=== PATIENT | female | born 1975 | race Caucasian/White ===

== ENCOUNTER 2019-08-16 18:45 | Emergency (ER) | payer BC, SELFPAY ==
[2019-08-16 18:47] VITALS: BP 133/74; PULSE 92; RESP 16; TEMP 36.4; O2SAT 100; BMI 32.5
--- NOTE | 2019-08-16 19:02 | ED.VIS.GEN ---
History of Present Illness Chief Complaint: Nausea/Vomiting/Diarrhea Detail of Chief Complaint: History of Crohn's disease and renal insufficiency Informant: Patient Onset: Weeks - 1.5 weeks Context: Sudden Onset Timing: Intermittent Quality: Nausea, vomiting and diarrhea Location: GI Current Severity: Mild Maximum Severity: Moderate Worsened by: Eating Relieved by: Nothing Associated Symptoms: Dry mouth, thirsty and concern for dehydration. Muscle cramps Narrative: Patient is a 44-year-old woman with history of Crohn's disease who states this flare started 1.5 weeks ago. She was seen at [facility] last week on Wednesday, August 09. She received 2 L of normal saline. The physician wanted to admit her because of renal injury. She refused. She is on Humira. 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 She denies fever, chills night sweats. She denies headache, ocular, visual auditory symptoms. She denies cardiac respiratory symptoms. She reports decreased urine output. Denies blood or mucus in her stool. She has no other complaints other than what is been listed. Prior similar symptoms: Yes Recent Illness/Hospitalization: Yes - Past Medical History (1) History of Crohn's disease Status: Acute Past Medical History - Allergies and Home Meds Allergies/Adverse Reactions: Allergies adhesive tape Allergy (Verified 08/16/19 18:47) Rash cetirizine [From Zyrtec] Allergy (Verified 08/16/19 18:47) Other infliximab [From Remicade] Allergy (Verified 08/16/19 18:47) Anaphylaxis latex Allergy (Verified 08/16/19 18:47) Rash prochlorperazine [From Compazine] Allergy (Verified 08/16/19 18:47) Other BUGS CRAWL ALL OVER ME topiramate [From Topamax] Allergy (Verified 08/16/19 18:47) Other sumatriptan [From Imitrex] Adverse Reaction (Verified 08/16/19 18:47) Other TACHYCARDIA Primary Care Physician: Martha Haro NP-C [Primary Care Provider] - Prior records reviewed: Yes Lives: Alone Smoking Status: Never smoker Alcohol: None Drugs: None Review of Systems General: Reports: Malaise. Denies: Chills, Fever, Sweats Eyes: Denies: Visual changes - bilaterally, Blurred Vision - bilaterally, Diplopia ENT: Denies: Bilateral ear pain, Rhinorrhea, Sore throat Cardiovascular: Denies: Chest pain, Palpitations Respiratory: Denies: Dyspnea, Cough, Dyspnea on exertion Gastrointestinal: Reports: Abdominal pain, Nausea, Vomiting, Diarrhea Genitourinary: Denies: Dysuria, Hematuria, Frequency Musculoskeletal: Reports: Myalgias. Denies: Arthralgias, Neck pain, Back pain, Swelling, Extremity Pain Skin: Denies: Rash, Abrasions, Wounds Neurological: Reports: Weakness. Denies: Parasthesia, Numbness Hematologic: Denies: Easy bruising, Easy bleeding Physical Exam Vital Signs/Narrative: Vital Signs Temp Pulse Resp BP Pulse Ox 08/16/19 18:47 97.5 F L 92 16 133/74 H 100 Inital Vital Signs reviewed: Yes General: Well nourished, Well developed, No Acute Distress Head: Normocephalic, Atraumatic Eyes: Perrl, EOMI. Negative for: Pale conjunctiva, Scleral icterus ENT: No rhinorrhea, Dry mucous membranes Neck: Supple, Nontender Cardiovascular: Regular rate, Regular rhythm, No murmurs, Normal S1, Normal S2 Respiratory: No distress, CTA bilaterally, Chest nontender Abdomen: Soft, Nontender, Nondistended, Normal bowel sounds, No masses Back: Nontender, Normal Inspection Extremities: Nontender, No edema Skin: Normal color, No rash, No Trauma. Negative for: Cyanosis, Diaphoresis, Jaundice Neurological: Alert, Oriented x3, Cranial nerves II-XII grossly intact, Normal Strength, Normal Sensation Psychological: Normal affect, Normal Mood Diagnostic/Tx/Re-eval Laboratory Results 08/16/19 08/16/19 18:57 18:57 WBC 7.8 RBC 4.53 Hgb 13.6 Hct 41.2 MCV 90.9 MCH 30.0 MCHC 33.0 RDW Std Deviation 43.1 RDW Coeff of Sergio 13.1 Plt Count 451 H MPV 9.2 Immature Gran % (Auto) 0.400 Neut % (Auto) 57.5 Lymph % (Auto) 32.8 [place] % (Auto) 6.6 Eos % (Auto) 1.8 Baso % (Auto) 0.9 Absolute Neuts (auto) 4.5 Absolute Lymphs (auto) 2.57 Nucleated RBC % 0 Sodium 142 Potassium 3.4 L Chloride 110 H Carbon Dioxide 24.0 Anion Gap 8 BUN 16 Creatinine 0.92 Estim Creat Clear Calc 68.79 Est GFR (MDRD) Af Amer 86 Est GFR (MDRD) Non-Af 71 BUN/Creatinine Ratio 17.4 Glucose 105 Calcium 9.2 CBC and basic metabolic panel unremarkable. Patient was informed based on her laboratory studies there is no indication she is dehydrated. She did receive 1 L of normal saline. She states she feels better. - Medical Decision Making With history of nausea vomiting 5-6 times a day and diarrhea will assess electrolytes and renal function especially since she was seen 1 week ago and position recommended admission, which patient declined. She received a liter of normal saline wide open and IV Zofran. Reports improvement after IV Zofran and 1 L of normal saline. Patient to be discharged home. ED Disposition - Plan for ED Patient: Diagnosis: Abdominal pain, vomiting, and diarrhea, History of Crohn's disease Instructions: VOMITING AND DIARRHEA, Nonspecific (Adult) Referrals: Martha Haro, YOLANDE-C [Primary Care Provider] - As soon as possible
[2019-08-16] MEDS: 0.9% Normal Saline 1,000 ML 1000 ML IV (19:09)
[2019-08-16 19:20] LABS: Anion Gap 8 (5-15); BUN 16 mg/dL (7-18); BUN/Creat Ratio 17.4 RATIO (10-20); Calcium,Total 9.2 mg/dL (8.5-10.1); Chloride 110 mmol/L (98-107); Creatinine, Serum 0.92 mg/dL (0.55-1.02); EST Glomerular Filtration Rate 71 mL/min (>60); Est Glom Filt Rate - Afr Amer 86 mL/min (>60); Estimated Creatinine Clearance 68.79 ml/min; Glucose 105 mg/dL (74-106); Potassium 3.4 mmol/L (3.5-5.1); Sodium Level 142 mmol/L (136-145)
[2019-08-16] MEDS: Ondansetron 4 MG/2 ML Vial IV (19:20)
[2019-08-16 19:25] VITALS: BP 119/56; PULSE 87; RESP 16
[2019-08-16 19:39] LABS: Absolute Lymphocyte Count 2.57 X10^3/uL (0.83-4.51); Absolute Neutrophil Count 4.5 X10^3/uL (2.0-7.7); Basophil# 0.07 X10^3/uL; Basophil% 0.9 % (0-1); Eosinophil# 0.14 X10^3/uL; Eosinophils% 1.8 % (0-5); Hematocrit 41.2 % (37-47); Hemoglobin 13.6 g/dL (12.0-15.0); Lymphocyte # 2.57 X10^3/ul (4.0); Lymphocyte % 32.8 % (19-41); Mean Corpuscular Volume 90.9 fL (81-99); Mean Platelet Vol. 9.2 fl (6.2-12.0); Monocyte# 0.52 X10^3/uL; Monocyte% 6.6 % (0-10); NRBC Flagged by Analyzer 0 % (0-5); Neutrophil % 57.5 % (47-70); Platelet Count 451 K/mm3 (150-450); RBC Distribution Width CV 13.1 % (11.6-14.6); RBC Distribution Width SD 43.1 fl (35.1-43.9); Red Blood Count 4.53 M/mm3 (4.2-5.4); White Blood Count 7.8 K/mm3 (4.4-11.0)
[2019-08-16 21:37] VITALS: BP 119/83; PULSE 88; RESP 16; O2SAT 98
== END 2019-08-16 21:38 | disposition home or self-care (01) ==
LOC: ED 19:19
PROVIDERS: Emergency Provider Emergency Medicine; Family Provider Nurse Practitioner Family; PCP Nurse Practitioner Family
DX: R10.9 Unspecified abdominal pain (principal); R11.0 Nausea; R19.7 Diarrhea, unspecified; K50.90 Crohn's disease, unspecified, without complications; Z79.899 Other long term (current) drug therapy
CPT/HCPCS: 80048; 85025; 96361; 96374; 99283; J7030; A4216; J2405

== ENCOUNTER 2020-08-23 13:57 | Emergency (ER) | payer BC, SELFPAY ==
[2020-08-23 13:58] VITALS: BP 131/92; PULSE 90; RESP 18; TEMP 36.6; O2SAT 99; BMI 37.6
--- NOTE | 2020-08-23 14:09 | ED.DCSUM_ITS ---
History of Present Illness Informant: Patient Onset: Today Narrative: 45-year-old female presents with dog bites to her face. She was playing with her mom's dog on the floor when it bit her several times on the right side of her face. Bleeding is controlled. Last tetanus unknown. The dog shots are up-to-date. She is currently taking Augmentin for a sinus infection with her last dose scheduled tomorrow. <Arlet Farris - Last Filed: 08/23/20 16:04> <Db Oliveira - Last Filed: 08/24/20 15:03> Chief Complaint: Bite Past Medical History Past Medical History: - - Crohn's disease Smoking Status: Never smoker <Arlet Farris - Last Filed: 08/23/20 16:04> <Db Oliveira - Last Filed: 08/24/20 15:03> - Allergies and Home Meds Allergies/Adverse Reactions: Allergies adhesive tape Allergy (Verified 08/23/20 14:01) Rash cetirizine [From Zyrtec] Allergy (Verified 08/23/20 14:01) Other infliximab [From Remicade] Allergy (Verified 08/23/20 14:01) Anaphylaxis latex Allergy (Verified 08/23/20 14:01) Rash prochlorperazine [From Compazine] Allergy (Verified 08/23/20 14:01) Other BUGS CRAWL ALL OVER ME topiramate [From Topamax] Allergy (Verified 08/23/20 14:01) Other sumatriptan [From Imitrex] Adverse Reaction (Verified 08/23/20 14:01) Other TACHYCARDIA Primary Care Physician: Martha Haro SUPERINTENDENT ELECTRIC POWER, SUPERINTENDENT ELECTRIC POWER-C [Primary Care Provider] - Review of Systems General: Denies: Chills, Fever, Sweats Eyes: Denies: Visual changes - bilaterally, Diplopia ENT: Denies: Rhinorrhea, Sore throat Cardiovascular: Denies: Chest pain, Palpitations Respiratory: Denies: Dyspnea, Cough, Dyspnea on exertion Gastrointestinal: Denies: Abdominal pain, Nausea, Vomiting, Diarrhea, Melena, Hematochezia Genitourinary: Denies: Dysuria, Hematuria, Frequency Musculoskeletal: Denies: Back pain, Extremity Pain Skin: Reports: Wounds. Denies: Rash Neurological: Denies: Weakness, Parasthesia, Numbness <Arlet Farris - Last Filed: 08/23/20 16:04> Physical Exam Vital Signs/Narrative: Vital Signs Temp Pulse Resp BP Pulse Ox 08/23/20 13:58 97.8 F 90 18 131/92 H 99 General: Well nourished, Well developed, No Acute Distress Head: Normocephalic, Atraumatic Eyes: Perrl, EOMI ENT: Moist mucous membranes, No rhinorrhea Neck: Supple, Nontender Cardiovascular: Regular rate, Regular rhythm, No murmurs Respiratory: No distress, CTA bilaterally, Chest nontender Back: Nontender, Normal Inspection Extremities: Nontender, No edema Skin: Normal color, No rash, - - 4 cm vertical laceration anterior to right ear, 4 cm laceration on right upper cheek, 4 cm jagged lacerationto the right of her lips that does not involve vermilion border Neurological: Alert, Oriented x3, Cranial nerves II-XII grossly intact, Normal Strength, Normal Sensation Psychological: Normal affect, Normal Mood <Arlet Farris - Last Filed: 08/23/20 16:04> Diagnostic/Tx/Re-eval - Medical Decision Making Patient presented with lacerations on her face from a dog bite. She appears well and nontoxic. Vital signs within normal limits. 3 separate lacerations. She has a 4 cm laceration anterior to her right ear, another 4 cm on her right upper cheek, and a jagged 4 cm laceration to the right of her lip that does not involve the vermilion border. Wounds were anesthetized with 4 cc of 1% lidocaine each for a total of 12 cc. They were thoroughly irrigated with the entire 250 cc of sterile saline. The laceration near her ear was closed with 6 simple interrupted sutures, the right upper cheek with 7 simple interrupted sutures, and right lip laceration with 6 simple interrupted sutures all using 5-0 Ethilon. Discussed general wound care and that sutures need removed in 4 to 5 days. Tetanus was updated and she was placed on Augmentin. Discussed to monitor for signs and symptoms of infection that would warrant return to the ED. She was agreeable and discharged home in stable condition. <Arlet Farris - Last Filed: 08/23/20 16:04> - Medical Decision Making Patient presents with dog bite to the face. She does have 3 separate lacerations that unfortunately do need primary closure. This was done and the patient tolerated without issue. She will be placed on Augmentin. She was counseled on wound care. I do want her to follow-up within 48 hours or return to the emergency department if her symptoms worsen. She was comfortable with this plan of care. <Db Oliveira - Last Filed: 08/24/20 15:03> ED Disposition <Arlet Farris - Last Filed: 08/23/20 16:04> <Db Oliveira - Last Filed: 08/24/20 15:03> - Plan for ED Patient: Disposition: Home or Assisted Living Diagnosis: Dog bite of face Instructions: ED Animal Bite (General) Prescriptions: Amox/Clavulanate Tablet [Augmentin Tablet] 875 mg PO Q12H #20 tab Transmission Status: Received by [id number] Referrals: Martha Haro NP, SUPERINTENDENT ELECTRIC POWER-C [Primary Care Provider] -
[2020-08-23] MEDS: HYDROcodone Bitartrate/Apap 5/325 Tablet PO (14:17)
[2020-08-23] MEDS: Diphth,Pertuss(Acell),Tet Vac 0.5 ML Vial IM (14:28)
[2020-08-23] MEDS: Lidocaine 1% (30 ml sdv) 30 ML Vial INFILT (14:36)
[2020-08-23 15:46] VITALS: BP 113/71; O2SAT 98
== END 2020-08-23 15:49 | disposition home or self-care (01) ==
LOC: ED 14:20
PROVIDERS: Emergency Provider Physician Assistant; PCP Nurse Practitioner Family
DX: S00.471A Other superficial bite of right ear, initial encounter (principal); S00.87XA Other superficial bite of other part of head, initial encounter; S00.571A Other superficial bite of lip, initial encounter; K50.90 Crohn's disease, unspecified, without complications; W54.0XXA Bitten by dog, initial encounter; Y93.9 Activity, unspecified; Y92.9 Unspecified place or not applicable
CPT/HCPCS: 12015; 90715; 99285

== ENCOUNTER 2020-08-25 08:46 | Inpatient (IN) | payer BC, SELFPAY ==
[2020-08-25] VITALS (8 sets, daily range): BP systolic 104–133; BP diastolic 39–83; PULSE 75–95; RESP 16–92; TEMP 36.1–37.1; O2SAT 95–100; BMI 36.5; BMI 36.8
--- NOTE | 2020-08-25 09:02 | CT_ITS ---
STUDY: CT FACIAL BONES WITH CONTRAST REASON FOR EXAM: Female, 45 years old. DOG BITE TO FACE, INCREASED EDEMA AND PAIN RADIATION DOSAGE (If Supplied By Facility): CTDIvol = ( 29.38 ) mGy, DLP = ( 642.95 ) mGycm TECHNIQUE: The patient was scanned in a multi detector CT scanner. Transaxial imaging was performed following the intravenous administration of IV 100mL Isovue-300. Sagittal and coronal images were reconstructed. Individualized dose optimization techniques were used for this CT. COMPARISON: None. FINDINGS: Skin thickening and soft tissue edema of the right side of the face consistent with cellulitis. No loculated fluid collection to suggest abscess. Normal orbital starr and orbital contents. Normal nasal bones and anterior nasal spine. Normal facial bones. There is no demonstrated fracture. Mucosal thickening of the sinuses consistent with chronic pansinusitis. Air-fluid levels within the maxillary and sphenoid sinuses consistent with acute sinusitis. CT/Sinus/Facial Bone WITH Contras IMPRESSION: Cellulitis in the right side of the face but no abscess. Electronically Signed: Ian Martinez MD at 10:31 EST Tel , Service support ,
--- NOTE | 2020-08-25 09:05 | NURSING ---
pt seen on wednesday for dog bite. rt side of face is swollen and red. 3 separate sites of sutures.
[2020-08-25] MEDS: Ondansetron 4 MG/2 ML Vial IV ×2 (09:21→11:31)
[2020-08-25] MEDS: Morphine 4 MG/ML Syringe IV ×2 (09:21→11:31)
[2020-08-25] MEDS: 0.9% Normal Saline 1,000 ML 150 ML IV (09:21)
[2020-08-25 09:43] LABS: Absolute Lymphocyte Count 1.59 X10^3/uL (0.83-4.51); Absolute Neutrophil Count 10.7 X10^3/uL (2.0-7.7); Basophil# 0.03 X10^3/uL; Basophil% 0.2 % (0-1); Eosinophil# 0.09 X10^3/uL; Eosinophils% 0.7 % (0-5); Hematocrit 33.9 % (37-47); Hemoglobin 11.1 g/dL (12.0-15.0); Lymphocyte # 1.59 X10^3/ul (4.0); Lymphocyte % 11.7 % (19-41); Mean Corp Hgb Conc 32.7 g/dL (32-36); Mean Corpuscular Volume 91.6 fL (81-99); Mean Platelet Vol. 8.9 fl (6.2-12.0); Monocyte# 1.01 X10^3/uL; Monocyte% 7.5 % (0-10); NRBC Flagged by Analyzer 0 % (0-5); Neutrophil # 10.74 X10^3/uL (2.7-7.7); Neutrophil % 79.3 % (47-70); Platelet Count 399 K/mm3 (150-450); RBC Distribution Width CV 12.9 % (11.6-14.6); RBC Distribution Width SD 42.3 fl (35.1-43.9); White Blood Count 13.5 K/mm3 (4.4-11.0)
[2020-08-25 09:46] LABS: Anion Gap 7 (5-15); BUN 9 mg/dL (7-18); BUN/Creat Ratio 11.2 RATIO (10-20); Calcium,Total 8.9 mg/dL (8.5-10.1); Chloride 105 mmol/L (98-107); Creatinine, Serum 0.81 mg/dL (0.55-1.02); EST Glomerular Filtration Rate 82 mL/min (>60); Est Glom Filt Rate - Afr Amer 99 mL/min (>60); Estimated Creatinine Clearance 77.33 ml/min; Glucose 128 mg/dL (74-106); Potassium 3.4 mmol/L (3.5-5.1); Sodium Level 139 mmol/L (136-145)
[2020-08-25 09:59] LABS: Lactic Acid 0.7 mmol/L (0.4-1.9)
[2020-08-25 10:02] LABS: Internal QC Validated? YES +Cl - CLEAR BKGD; Pregnancy, Serum, hCG Quali. NEGATIVE Negative
--- NOTE | 2020-08-25 11:02 | ED.DCSUM_ITS ---
History of Present Illness Chief Complaint: Fever Detail of Chief Complaint: Facial swelling Informant: Patient Onset: Days Context: Gradual Onset Current Severity: Moderate Maximum Severity: Moderate Narrative: Patient was seen in the ER on the after suffering a dog bite to the right side of her face. She had 3 separate lacerations, each measuring 4 cm in length . These were repaired and patient was placed on Augmentin. Patient states she had increased pain and swelling over the past 2 days. She did have a fever up to 101.6. She does report having some congestion and chills for the last week and a half. She was tested for Covid which was negative and she had been on Augmentin for sinus infection. - Past Medical History (1) History of Crohn's disease Status: Chronic Past Medical History - Allergies and Home Meds Allergies/Adverse Reactions: Allergies adhesive tape Allergy (Verified 08/25/20 08:48) Rash cetirizine [From Zyrtec] Allergy (Verified 08/25/20 08:48) Other infliximab [From Remicade] Allergy (Verified 08/25/20 08:48) Anaphylaxis latex Allergy (Verified 08/25/20 08:48) Rash prochlorperazine [From Compazine] Allergy (Verified 08/25/20 08:48) Other BUGS CRAWL ALL OVER ME topiramate [From Topamax] Allergy (Verified 08/25/20 08:48) Other sumatriptan [From Imitrex] Adverse Reaction (Verified 08/25/20 08:48) Other TACHYCARDIA Primary Care Physician: Martha Haro HVAC MAINTENANCE TECHNICIAN, HVAC MAINTENANCE TECHNICIAN-C [Primary Care Provider] - Prior records reviewed: Yes Smoking Status: Never smoker Review of Systems General: Reports: Fever Eyes: Denies: Visual changes - bilaterally ENT: Reports: - - Right facial pain and swelling Cardiovascular: Denies: Chest pain Respiratory: Denies: Dyspnea, Cough Gastrointestinal: Reports: Nausea. Denies: Abdominal pain, Vomiting Musculoskeletal: Denies: Extremity Pain Skin: Reports: Wounds Neurological: Denies: Headache Hematologic: Denies: Easy bruising, Easy bleeding Allergy: Denies: Uticaria Physical Exam Vital Signs/Narrative: Vital Signs Temp Pulse Resp BP Pulse Ox 08/25/20 10:00 98.1 F 77 92 H 116/73 08/25/20 09:23 98 F 79 16 118/78 08/25/20 08:49 97.8 F 93 17 108/39 L 95 Inital Vital Signs reviewed: Yes General: Well nourished, Well developed Head: Normocephalic Eyes: Perrl, EOMI ENT: - - 3 sutured lacerations noted to the right side of face. Sutures are clean. She does have moderate right-sided facial edema. There is mild erythema extending onto the anterior neck. No drainage from the wounds. Cardiovascular: Regular rate, Regular rhythm Respiratory: No distress, CTA bilaterally Abdomen: Soft, Nontender Extremities: Nontender Skin: - - As above Neurological: Alert, Oriented x3 Psychological: Normal affect Diagnostic/Tx/Re-eval Impressions Facial/Sinus 08/25/20 09:02 IMPRESSION: Cellulitis in the right side of the face but no abscess. Electronically Signed: Ian Martinez MD at 10:31 EST Tel , Service support , 08/25/20 09:02 CT Facial [Sinus/Facial Bone WITH Contras] [CT] Stat Laboratory Results 08/25/20 08/25/20 08/25/20 09:19 09:19 09:19 WBC 13.5 H RBC 3.70 L Hgb 11.1 L Hct 33.9 L MCV 91.6 MCH 30.0 MCHC 32.7 RDW Std Deviation 42.3 RDW Coeff of Sergio 12.9 Plt Count 399 MPV 8.9 Immature Gran % (Auto) 0.600 Neut % (Auto) 79.3 H Lymph % (Auto) 11.7 L [place] % (Auto) 7.5 Eos % (Auto) 0.7 Baso % (Auto) 0.2 Absolute Neuts (auto) 10.7 H Absolute Lymphs (auto) 1.59 Nucleated RBC % 0 Sodium 139 Potassium 3.4 L Chloride 105 Carbon Dioxide 27.0 Anion Gap 7 BUN 9 Creatinine 0.81 Estim Creat Clear Calc 77.33 Est GFR (MDRD) Af Amer 99 Est GFR (MDRD) Non-Af 82 BUN/Creatinine Ratio 11.2 Glucose 128 H Lactic Acid 0.7 Calcium 8.9 Serum , Qual 08/25/20 09:19 WBC RBC Hgb Hct MCV MCH MCHC RDW Std Deviation RDW Coeff of Sergio Plt Count MPV Immature Gran % (Auto) Neut % (Auto) Lymph % (Auto) [place] % (Auto) Eos % (Auto) Baso % (Auto) Absolute Neuts (auto) Absolute Lymphs (auto) Nucleated RBC % Sodium Potassium Chloride Carbon Dioxide Anion Gap BUN Creatinine Estim Creat Clear Calc Est GFR (MDRD) Af Amer Est GFR (MDRD) Non-Af BUN/Creatinine Ratio Glucose Lactic Acid Calcium Serum , Qual NEGATIVE - Medical Decision Making Patient was given a dose of morphine and Zofran for pain control. Blood cultures were drawn. Blood work does show elevation in white count. CT scan reveals cellulitis but no evidence of abscess at this time. Patient is immunocompromised on prednisone and Stelara. Patient will be given IV vancomycin and admitted for further treatment. ED Disposition - Plan for ED Patient: Disposition: Acute Care [facility] Diagnosis: Facial cellulitis Referrals: Martha Haro HVAC MAINTENANCE TECHNICIAN, HVAC MAINTENANCE TECHNICIAN-C [Primary Care Provider] -
[2020-08-25 11:26] LABS: Mucous, Urine 0 SEEN /hpf (<or=2+); Red Blood Cells-Urine 0 SEEN /hpf (0-5)
[2020-08-25 11:42] LABS: Color, Urine Yellow (Yellow); Glucose, Dipstick Normal (Normal); Ketone-Dipstick 5 mg/dl (Negative); Leukocyte Esterase-Dipstick Negative /ul (Negative); Nitrite-Dipstick Negative (Negative); Occult Blood-Urine 10 /ul (Negative); Protein-Dipstick 30 mg/dl (Negative); Urine Bilirubin Dipstick Negative (Negative); Urine Clarity Clear (Clear); Urine Urobilinogen Normal (Normal)
--- NOTE | 2020-08-25 12:03 | HP.PCM_ITS ---
Problem List (1) Fibromyalgia Status: Chronic (2) History of Crohn's disease Status: Chronic (3) Facial cellulitis Status: Acute History of Present Illness Date of Admission: 08/25/20 Chief Complaint: Worsening right facial swelling, pain and redness, fever. The patient is a 45 year old F with past medical history as mentioned above presented to the emergency room because of worsening right facial swelling, pain and redness as well as fever. Patient had dog bite 2 days ago, had multiple right facial lacerations, came to the emergency department 2 days ago, lacerat ion was sutured and patient was discharged home on Augmentin. Patient was Augmentin for 8 days before this for sinus infection and she continued taking Augmentin. Since yesterday, she noticed that her right face is getting more red, started having more pain on the right face, dull aching pain, 5 out of 10 in severity, associated with progressively increasing redness and swelling, aggravated by opening her mouth and associated with fever as well. She mentioned she that she had a fever of up to 101.6 Fahrenheit at home. In the emergency department, her vital signs were stable, she was afebrile. Routine blood work was remarkable for leukocytosis, potassium of 3.4, otherwise normal. Urinalysis pending. Lactic acid was normal. Serum was negative. CT scan of the facial bones with contrast revealed right facial cellulitis with no abscess or fluid collection. Patient is being admitted for right facial cellulitis due to dog bite with failure of outpatient treatment. Past Medical History Past Medical History (Chronic Problems): Chronic Problems Fibromyalgia (Chronic) History of Crohn's disease (Chronic) Allergies adhesive tape Allergy (Verified 08/25/20 08:48) Rash cetirizine [From Zyrtec] Allergy (Verified 08/25/20 08:48) Other infliximab [From Remicade] Allergy (Verified 08/25/20 08:48) Anaphylaxis latex Allergy (Verified 08/25/20 08:48) Rash prochlorperazine [From Compazine] Allergy (Verified 08/25/20 08:48) Other BUGS CRAWL ALL OVER ME topiramate [From Topamax] Allergy (Verified 08/25/20 08:48) Other sumatriptan [From Imitrex] Adverse Reaction (Verified 08/25/20 08:48) Other TACHYCARDIA Home Medications: Ambulatory Orders Medication Instructions Recorded Anti-Diarrheal 4 tab PO DAILY 02/05/17 Baclofen [Lioresal] 10 mg PO TID 02/05/17 Gabapentin [Neurontin] 300 mg PO TID 02/05/17 Metoclopramide [Reglan] 10 mg PO TID PRN 02/05/17 Omeprazole [Prilosec] 40 mg PO DAILY 02/05/17 Oxycodone HCl/Acetaminophen 1 tab PO TID 02/05/17 [Percocet 10-325 mg Tablet] Amox/Clavulanate Tablet [Augmentin 875 mg PO Q12H #20 tab 08/23/20 Tablet] Fluticasone 0.05% [Flonase Nasal 2 spray NASAL DAILY 08/23/20 [place]] Prednisone 5 mg PO TID 08/23/20 Ustekinumab [Stelara] 90 mg SQ Q8 08/23/20 Surgical History: appendectomy, cholecystectomy, colectomy Psychiatric History: No pertinent psych hx Lives: Spouse/ Significant Other Smoking Status: Never smoker Alcohol: None Drugs: None - *Family History Maternal History Items: No pertinent history Paternal History Items: No pertinent history Review of Systems Constitutional: Reports: Fever. Denies: Anorexia, Chills, Weakness Eyes: Denies: Blurred vision, Double vision, Drainage, Redness HEENT: Denies: Difficulty Hearing, Ear Pain, Eye Pain, Nasal Congestion, Sore Throat Cardiovascular: Denies: Chest Pain, Chest Pressure, Edema, Heaviness, Light Headedness, Palpitations, Syncope Respiratory: Denies: Cough, Pleuritic Pain, Shortness of Breath, Sputum production, Wheezing Gastrointestinal: Denies: Abdominal Pain, Constipation, Diarrhea, Nausea, Vomiting Genitourinary: Denies: Dysuria, Frequency, Hematuria Musculoskeletal: Denies: Arm Pain, Back Pain, Foot Pain Skin: Reports: Wounds. Denies: Dryness Neurological: Denies: Balance problems, Double vision, Change in Speech, Slurred speech, Confusion Psychiatric: Denies: Anxiety, Depression Endocrine: Denies: Change in Body Habitus, Polydipsia, Polyuria VTE Information - Inpt Only VTE Present on Admission: No VTE Mechan Device Prophylaxis: None VTE Pharm Prophylaxis ordered?: No Patient Problems: Active and Suspected Problems Facial cellulitis (Acute) - Physical Exam Vitals/I&O's: Vital Signs Temp Pulse Resp BP Pulse Ox 97 F L 79 18 119/81 H 98 08/25/20 11:24 08/25/20 11:24 08/25/20 11:24 08/25/20 11:24 08/25/20 11:24 Oxygen Delivery Method Room Air Weight: 212 lb 11.937 oz Body Mass Index (BMI) 36.5 General: Alert, Oriented x3, Cooperative, No apparent distress HEENT: Atraumatic, PERRLA, EOMI, Normocephalic Oral: Moist Mucosa, No Gingival or Mucosal Lesions/ Ulcerations Neck: Supple, No JVD, Negative Carotid Bruits, Trachea Midline, Thyroid Normal Size and Texture Lungs: Clear to auscultation, Normal air movement, No rhonchi, No wheeze, No rales Cardiovascular: Regular rate, Regular Rhythm, Normal S1, Normal S2, PMI Normal Abdomen: Bowel Sounds Present, Soft, Non Tender, Non-Distended, No Hepato- splenomegaly, Obese Extremities: No clubbing, No cyanosis, No edema Skin: No rashes, - - Face: Extensive erythema and swelling of the right face extending into the around the right thigh and down to the anterior neck. Right facial lacerations x3, sutured. No drainage or pus. Lymphatic: No Cervical, Supraclavicular, or Inguinal Adenopathy Neurological: Cranial nerves II-XII grossly intact, Motor Exam 5/5 strength throughout Psych/Mental Status: Normal Affect, Appropriate, Alert and oriented to time, place, person, mood and affect Laboratory Results 08/25/20 09:19: WBC 13.5 H, RBC 3.70 L, Hgb 11.1 L, Hct 33.9 L, MCV 91.6, MCH 30.0, MCHC 32.7, RDW Std Deviation 42.3, RDW Coeff of Sergio 12.9, Plt Count 399, MPV 8.9, Immature Gran % (Auto) 0.600, Neut % (Auto) 79.3 H, Lymph % (Auto) 11.7 L, [place] % (Auto) 7.5, Eos % (Auto) 0.7, Baso % (Auto) 0.2, Absolute Neuts (auto) 10.7 H, Absolute Lymphs (auto) 1.59, Nucleated RBC % 0 08/25/20 09:19: Sodium 139, Potassium 3.4 L, Chloride 105, Carbon Dioxide 27.0, Anion Gap 7, BUN 9, Creatinine 0.81, Estim Creat Clear Calc 77.33, Est GFR (MDRD) Af Amer 99, Est GFR (MDRD) Non-Af 82, BUN/Creatinine Ratio 11.2, Glucose 128 H, Calcium 8.9 08/25/20 09:19: Lactic Acid 0.7 08/25/20 09:19: Serum , Qual NEGATIVE 08/25/20 11:20: Urine Color Pending, Urine Clarity Pending, Urine pH Pending, Ur Specific [place] Pending, Urine Protein Pending, Urine Glucose (UA) Pending, Urine Ketones Pending, Urine Occult Blood Pending, Urine Nitrite Pending, Urine Bilirubin Pending, Urine Urobilinogen Pending, Ur Leukocyte Esterase Pending, Urine RBC Pending, Urine WBC Pending, Ur Squamous Epith Cells Pending, Urine Bacteria Pending, Urine Mucus Pending Clinical Impression(s) from Imaging Studies Facial/Sinus 08/25/20 09:02 IMPRESSION: Cellulitis in the right side of the face but no abscess. Electronically Signed: Ian Martinez MD at 10:31 EST Tel , Service support , Current Medications Sodium Chloride () 1,000 mls @ 150 mls/hr IV .[id number] [facility] Last Admin: 08/25/20 09:21 Dose: 150 mls/hr Documented by: Vancomycin HCl 1,500 mg/ (Sodium Chloride) 530 mls @ 250 mls/hr IV X1 ONE Stop: 08/25/20 13:37 Last Admin: 08/25/20 11:22 Dose: 250 mls/hr Documented by: Assessment/Plan All Active Problems Facial cellulitis (Acute) This is a 45 years old female patient presented to the emergency room because of worsening right facial pain, swelling and redness after she had dog bite 2 days ago, was on Augmentin without improvement and she is being admitted for treatment with IV antibiotics. #1 acute right facial cellulitis/multiple lacerations status post suturing: Due to dog bite. Patient was on Augmentin for 8 days for sinus infection and she was continued on Augmentin for last couple of days, no improvement. She does have leukocytosis. Lactic acid is normal. No evidence of sepsis or severe sepsis. CT scan facial bones reviewed, no abscess or fluid collection. Plan[facility], IV fluids, blood culture, MRSA nasal screening, start IV Rocephin twice daily and IV Flagyl, Tylenol as needed, Zofran as needed, IV morphine as needed, OxyIR as needed, repeat CBC and BMP tomorrow morning. #2 Crohn's disease: With history of chronic diarrhea and chronic abdominal pain, nothing unusual. Currently, she denies bloody diarrhea. She had colectomy and multiple surgeries for Crohn's disease, status post J-pouch. She has been on Stelara injections every 8 weeks. She is not on any long-term steroids. Plan to monitor. #3 fibromyalgia/arthritis: Continue baclofen, gabapentin, OxyIR as needed. #4 DVT prophylaxis: Low risk patient, no prophylaxis indicated. This note was generated with [employer] dictation software. It may contain incorrect words, spelling, and punctuation that were not noted in checking the note b efore signing. Inpatient E&M: 09235 Init Hosp L2
[2020-08-25 12:07] LABS: Bacteria RARE /hpf (None Seen); Squamous Epithelial Cells - UA 0-5 SEEN /hpf (5-10); White Blood Cells 0-5 SEEN /hpf (0-5)
[2020-08-25] MEDS: oxyCODONE 5 MG Tablet PO ×3 (13:23→21:48)
[2020-08-25] MEDS: Gabapentin 300 MG Capsule PO ×2 (13:24→21:05)
[2020-08-25] MEDS: Baclofen 10 MG Tablet PO ×2 (13:24→21:05)
[2020-08-25] MEDS: metroNIDAZOLE 500 MG/100 ML BAG 100 MG IV ×2 (14:00→21:48)
[2020-08-25] MEDS: 0.9% Normal Saline 1,000 ML 75 ML IV (14:01)
[2020-08-25 16:33] LABS: M R Staph aureus DNA By PCR Negative (Negative); Probe Check PASS; Specimen Processing Control PASS
[2020-08-25] MEDS: Morphine 2 MG/ML Syringe IV (19:56)
[2020-08-25] MEDS: Zolpidem Tartrate 5 MG Tablet PO (21:04)
[2020-08-25] MEDS: Ceftriaxone 1 GM/50 ML BAG IV (21:05)
[2020-08-26] MEDS: Acetaminophen 325 MG Tablet 650 MG PO ×3 (02:13→19:54)
[2020-08-26 02:15] VITALS: BP 111/72; PULSE 107; RESP 18; TEMP 37.5; O2SAT 94
[2020-08-26] MEDS: Morphine 2 MG/ML Syringe IV ×3 (02:17→18:59)
[2020-08-26 05:09] LABS: Absolute Neutrophil Count 6.7 X10^3/uL (2.0-7.7); Basophil# 0.05 X10^3/uL; Basophil% 0.6 % (0-1); Eosinophil# 0.23 X10^3/uL; Eosinophils% 2.6 % (0-5); Hematocrit 28.2 % (37-47); Hemoglobin 9.3 g/dL (12.0-15.0); Lymphocyte % 15.6 % (19-41); Mean Corpuscular Hgb 30.2 pg (27.0-32.0); Mean Corpuscular Volume 91.6 fL (81-99); Mean Platelet Vol. 8.7 fl (6.2-12.0); Monocyte# 0.59 X10^3/uL; Monocyte% 6.6 % (0-10); NRBC Flagged by Analyzer 0 % (0-5); Neutrophil # 6.65 X10^3/uL (2.7-7.7); Neutrophil % 74.2 % (47-70); Platelet Count 321 K/mm3 (150-450); RBC Distribution Width CV 12.8 % (11.6-14.6); RBC Distribution Width SD 42.7 fl (35.1-43.9); Red Blood Count 3.08 M/mm3 (4.2-5.4)
[2020-08-26 05:26] LABS: Anion Gap 7 (5-15); BUN 8 mg/dL (7-18); BUN/Creat Ratio 11.2 RATIO (10-20); Calcium,Total 8.4 mg/dL (8.5-10.1); Chloride 106 mmol/L (98-107); Creatinine, Serum 0.72 mg/dL (0.55-1.02); EST Glomerular Filtration Rate 94 mL/min (>60); Est Glom Filt Rate - Afr Amer 114 mL/min (>60); Glucose 102 mg/dL (74-106); Potassium 3.5 mmol/L (3.5-5.1); Sodium Level 138 mmol/L (136-145)
[2020-08-26] MEDS: metroNIDAZOLE 500 MG/100 ML BAG 100 MG IV ×2 (05:49→14:55)
[2020-08-26] MEDS: Gabapentin 300 MG Capsule PO ×3 (05:50→21:32)
[2020-08-26] MEDS: Baclofen 10 MG Tablet PO ×3 (05:50→21:32)
[2020-08-26 07:22] VITALS: O2SAT 96
--- NOTE | 2020-08-26 08:05 | PCM.PROGNOTE ---
Patient Problems: Active and Suspected Problems Facial cellulitis (Acute) Subjective: Chief complaint: Follow-up after admission for acute right facial s/ multiple lacerations due to dog bite with failure of outpatient treatment. Patient seen and examined. No acute events overnight. Facial swelling and erythema almost the same, she started having drainage from the lacerations, pus. She had no spikes of fever last night, maximum temperature was 99.5 Fahrenheit. Other vital signs are stable. - Physical Exam Vitals/I&O's: Vital Signs Temp Pulse Resp BP Pulse Ox 99.5 F H 107 H 18 111/72 94 08/26/20 02:15 08/26/20 02:15 08/26/20 02:15 08/26/20 02:15 08/26/20 02:15 Oxygen Delivery Method Room Air Weight: 214 lb 4 oz Body Mass Index (BMI) 36.8 Intake and Output for Last 24 Hours 08/24/20 08/25/20 08/26/20 23:59 23:59 23:59 Intake Total 3576.5 / 3576.5 529.5 / 529.5 Balance 3576.5 / 3576.5 529.5 / 529.5 General: Alert, Oriented x3, Cooperative, No apparent distress HEENT: Atraumatic, PERRLA, EOMI, Normocephalic Oral: Moist Mucosa, No Gingival or Mucosal Lesions/ Ulcerations Neck: Supple, No JVD, Negative Carotid Bruits, Trachea Midline, Thyroid Normal Size and Texture Lungs: Clear to auscultation, Normal air movement, No rhonchi, No wheeze, No rales Cardiovascular: Regular rate, Regular Rhythm, Normal S1, Normal S2, No murmurs, PMI Normal Abdomen: Bowel Sounds Present, Soft, Non Tender, Non-Distended, No Hepato-splenomegaly Extremities: No clubbing, No cyanosis, No edema Skin: No rashes, Ulcer/ Wound, - - Right face: Significant erythema and edema, multiple lacerations, drainage. Lymphatic: No Cervical, Supraclavicular, or Inguinal Adenopathy Neurological: Cranial nerves II-XII grossly intact, Neuro grossly intact Psych/Mental Status: Normal Affect, Appropriate, Alert and oriented to time, place, person, mood and affect Laboratory Results 08/25/20 09:19: WBC 13.5 H, RBC 3.70 L, Hgb 11.1 L, Hct 33.9 L, MCV 91.6, MCH 30.0, MCHC 32.7, RDW Std Deviation 42.3, RDW Coeff of Sergio 12.9, Plt Count 399, MPV 8.9, Immature Gran % (Auto) 0.600, Neut % (Auto) 79.3 H, Lymph % (Auto) 11.7 L, [place] % (Auto) 7.5, Eos % (Auto) 0.7, Baso % (Auto) 0.2, Absolute Neuts (auto) 10.7 H, Absolute Lymphs (auto) 1.59, Nucleated RBC % 0 08/25/20 09:19: Sodium 139, Potassium 3.4 L, Chloride 105, Carbon Dioxide 27.0, Anion Gap 7, BUN 9, Creatinine 0.81, Estim Creat Clear Calc 77.33, Est GFR (MDRD) Af Amer 99, Est GFR (MDRD) Non-Af 82, BUN/Creatinine Ratio 11.2, Glucose 128 H, Calcium 8.9 08/25/20 09:19: Lactic Acid 0.7 08/25/20 09:19: Serum , Qual NEGATIVE 08/25/20 11:20: Urine Color Yellow, Urine Clarity Clear, Urine pH 5.0, Ur Specific [place] 1.010, Urine Protein 30 H, Urine Glucose (UA) Normal, Urine Ketones 5 H, Urine Occult Blood 10 H, Urine Nitrite Negative, Urine Bilirubin Negative, Urine Urobilinogen Normal, Ur Leukocyte Esterase Negative, Urine RBC 0 SEEN, Urine WBC 0-5 SEEN, Ur Squamous Epith Cells 0-5 SEEN, Urine Bacteria RARE, Urine Mucus 0 SEEN 08/25/20 14:50: MRSA (PCR) Negative 08/26/20 05:02: WBC 9.0, RBC 3.08 L, Hgb 9.3 L, Hct 28.2 L, MCV 91.6, MCH 30.2, MCHC 33.0, RDW Std Deviation 42.7, RDW Coeff of Sergio 12.8, Plt Count 321, MPV 8.7, Immature Gran % (Auto) 0.400, Neut % (Auto) 74.2 H, Lymph % (Auto) 15.6 L, [place] % (Auto) 6.6, Eos % (Auto) 2.6, Baso % (Auto) 0.6, Absolute Neuts (auto) 6.7, Absolute Lymphs (auto) 1.40, Nucleated RBC % 0 08/26/20 05:02: Sodium 138, Potassium 3.5, Chloride 106, Carbon Dioxide 25.0, Anion Gap 7, BUN 8, Creatinine 0.72, Estim Creat Clear Calc 87.00, Est GFR (MDRD) Af Amer 114, Est GFR (MDRD) Non-Af 94, BUN/Creatinine Ratio 11.2, Glucose 102, Calcium 8.4 L Current Medications Acetaminophen (Acetaminophen 325 Mg Tablet) 650 mg PO Q6H PRN PRN PRN Reason: Pain Score 1-10/Temp > 100.7 F Last Admin: 08/26/20 02:13 Dose: 650 mg Documented by: Baclofen (Baclofen 10 Mg Tablet) 10 mg PO TID [facility] Last Admin: 08/26/20 05:50 Dose: 10 mg Documented by: Fluticasone Propionate (Fluticasone 0.05% 1 [place] Nasal.Sry) 2 spray NASAL DAILY [facility] Gabapentin (Gabapentin 300 Mg Capsule) 300 mg PO TID [facility] Last Admin: 08/26/20 05:50 Dose: 300 mg Documented by: Ceftriaxone Sodium (Rocephin) 1 gm in 50 mls @ 100 mls/hr IV Q12 [facility] Last Infusion: 08/25/20 21:35 Dose: Infused Documented by: Metronidazole (Flagyl) 500 mg in 100 mls @ 100 mls/hr IV Q8 [facility] Last Infusion: 08/26/20 06:49 Dose: Infused Documented by: Sodium Chloride () 250 mls @ 15 mls/hr IV .[id number] PRN PRN Reason: Saline Flush Last Infusion: 08/26/20 06:49 Dose: 15 mls/hr Documented by: Sodium Chloride () 250 mls @ 15 mls/hr IV .[id number] PRN PRN Reason: Additional IVPB Infusion Metoclopramide HCl (Metoclopramide 10 Mg Tablet) 10 mg PO TID PRN PRN PRN Reason: NAUSEA Morphine Sulfate (Morphine 2 Mg/Ml Syringe) 2 mg IV Q4H PRN PRN PRN Reason: Pain Score 6-10 Last Admin: 08/26/20 02:17 Dose: 2 mg Documented by: Ondansetron HCl (Ondansetron 4 Mg/2 Ml Vial) 4 mg IV Q8H PRN PRN PRN Reason: NAUSEA/VOMITING Oxycodone HCl (Oxycodone 5 Mg Tablet) 5 mg PO Q4H PRN PRN PRN Reason: Pain Score 4-5 Last Admin: 08/25/20 21:48 Dose: 5 mg Documented by: Pantoprazole Sodium (Pantoprazole Sodium 40 Mg Tablet) 40 mg PO DAILY [facility] Senna/Docusate Sodium (Senna/Docusate Sodium 1 Tablet) 2 tablet PO BID PRN PRN PRN Reason: Constipation Sodium Chloride (0.9% Saline Lock 10 Ml Syringe) 10 - 40 ml IV UD PRN PRN Reason: SALINE FLUSH Zolpidem Tartrate (Zolpidem Tartrate 5 Mg Tablet) 5 mg PO QHS PRN PRN PRN Reason: INSOMNIA Last Admin: 08/25/20 21:04 Dose: 5 mg Documented by: Medical Necessity - Tobacco Use Smoking Status: Never smoker Assessment/Plan All Active Problems Facial cellulitis (Acute) This is a 45 years old female patient presented to the emergency room because of worsening right facial pain, swelling and redness after she had dog bite 2 days ago, was on Augmentin without improvement and she is being admitted for treatment with IV antibiotics. #1 acute right facial cellulitis/multiple lacerations status post suturing: Due to dog bite. She is on IV Rocephin and Flagyl. She has been afebrile, leukocytosis resolved. She started having drainage from the facial lacerations. Cultures was done. Blood cultures pending. MRSA nasal screen was negative. CT scan facial bones reviewed, no abscess or fluid collection. Plan: Continue same treatment, plastic surgery consult. #2 Crohn's disease: With history of chronic diarrhea and chronic abdominal pain, nothing unusual. Stable, no acute complaints. She had colectomy and multiple surgeries for Crohn's disease, status post J-pouch. She has been on Stelara injections every 8 weeks. She is not on any long-term steroids. Plan to monitor. #3 fibromyalgia/arthritis: Continue baclofen, gabapentin, OxyIR as needed. #4 DVT prophylaxis: Low risk patient, no prophylaxis indicated. This note was generated with [employer] software. It may contain incorrect words, spelling, and punctuation that were not noted in checking the note before signing. Inpatient E&M: [id number] Subs Hosp L2
[2020-08-26] MEDS: oxyCODONE 5 MG Tablet PO ×3 (08:53→21:32)
[2020-08-26] MEDS: Ceftriaxone 1 GM/50 ML BAG IV (08:53)
[2020-08-26] MEDS: Pantoprazole Sodium 40 MG Tablet PO (09:03)
--- NOTE | 2020-08-26 09:10 | CASEMGMT ---
RN CM Face to Face with patient for initial transition planning/care coordination assessment. RN CM introduced self and role at [facility]. Patient lying in bed, alert and oriented. Patient willing to participate in assessment and is able to answer all questions appropriately. Care providers, pharmacy, and demographics verified. Patient wishes to discharge home, denies need for home health at this time. Patient states he has no further needs or concerns at this time. CM to follow for discharge planning needs that may arise. PCP: Martha Haro [employer] Specialists: Allison gastro; Omar electric meter technician [facility] Insurance: [employer] Prescription Benefit: yes Living Will/HPOA: yes, ex- Jeff Baker LNOK: mother, father Living Arrangements: Patient lives alone in a single story home with 2 steps and railing to enter the home. Patient states she is independent at home. Transportation: self/parents DME/HHC: Patient denies DME or previous HHC. 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 Disposition Plan: Patient to discharge home with family support and follow-up plans in place. Will monitor for IV ATBs. Eleanor GRANDA, RN, CM
[2020-08-26 10:00] VITALS: BP 104/68; PULSE 88; RESP 18; TEMP 36.9; O2SAT 95
[2020-08-26 15:09] VITALS: BP 118/79; PULSE 87; RESP 16; TEMP 36.4; O2SAT 100
--- NOTE | 2020-08-26 17:58 | CON.PCM_ITS ---
Reason for Consult Date of Consultation: 08/26/20 Reason for Consultation: Right facial cellulitis from recent multiple dog bites wound infection. REFERRING PHYSICIAN: Dr. Edmond. CATTLE DEHORNER: Dr. Denney. History of Present Illness: The patient is a 45 year old F with past medical history of Crohn's disease and on Stelara (Ustekinumab) and Prednisone sustained complex dog bite wounds to the right side of her face (right preauricular area by helical root, right cheek near lower eyelid, and right medial cheek by oral commissure) om 08/23/20. It was a family dog. She went to the ED where the dog bite wounds were cleansed and suture repaired with single layer of Nylon sutures. She was discharged on Augmentin. Over the next couple of days she developed worsening pain and redness and swelling around the dog bite incisions which prompted a return visit to the ED on 08/25/20. WBC was 13.5. Lactate was normal at 0.7. She stated she had a fever at home. In the ED her temperature was normal. She was started on Ceftriaxone and Flagyl. CT Face was done which showed cellulitis in the right side of the face but no abscess. This morning her temperature did increase to 99.5. Her WBC decreased to normal at 9.0. With persistent redness and pain and swelling, I was asked to evaluate this patient for surgical options for treatment. 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) Long-term current use of ustekinumab (Chronic) Fibromyalgia (Chronic) History of Crohn's disease (Chronic) Allergies adhesive tape Allergy (Verified 08/25/20 12:30) Rash cetirizine [From Zyrtec] Allergy (Verified 08/25/20 12:30) Other Flushed hot face infliximab [From Remicade] Allergy (Verified 08/25/20 12:30) Anaphylaxis latex Allergy (Verified 08/25/20 12:30) Rash prochlorperazine [From Compazine] Allergy (Verified 08/25/20 12:30) Other BUGS CRAWL ALL OVER ME topiramate [From Topamax] Allergy (Verified 08/25/20 12:30) Other tongue and fingertips numb sumatriptan [From Imitrex] Adverse Reaction (Verified 08/25/20 12:30) Other TACHYCARDIA Home Medications: Ambulatory Orders Medication Instructions Recorded Anti-Diarrheal 4 tab PO DAILY 02/05/17 Baclofen [Lioresal] 10 mg PO TID PRN 02/05/17 Gabapentin [Neurontin] 300 mg PO TID 02/05/17 Metoclopramide [Reglan] 10 mg PO TID PRN 02/05/17 Omeprazole [Prilosec] 40 mg PO DAILY 02/05/17 Oxycodone HCl/Acetaminophen 1 tab PO TID PRN 02/05/17 [Percocet 10-325 mg Tablet] Amox/Clavulanate Tablet [Augmentin 875 mg PO Q12H #20 tab 08/23/20 Tablet] Fluticasone 0.05% [Flonase Nasal 2 spray NASAL DAILY 08/23/20 [place]] Prednisone 5 mg PO TID 08/23/20 Ustekinumab [Stelara] 90 mg SQ Q8 08/23/20 traZODone [Desyrel] 50 mg PO QHS PRN 08/25/20 Surgical History: appendectomy, cholecystectomy, colectomy Psychiatric History: No pertinent psych hx Lives: Spouse/ Significant Other Smoking Status: Never smoker Alcohol: None Drugs: None - *Family History Maternal History Items: No pertinent history Paternal History Items: No pertinent history Review of Systems Comment: Constitutional: Reports: Fever. Denies: Anorexia, Chills, Weakness. Eyes: Denies: Blurred vision, Double vision, Drainage, Redness. HEENT: Denies: Difficulty Hearing, Ear Pain, Eye Pain, Nasal Congestion, Sore Throat. Cardiovascular: Denies: Chest Pain, Chest Pressure, Edema, Heaviness, Light Headedness, Palpitations, Syncope. Respiratory: Denies: Cough, Pleuritic Pain, Shortness of Breath, Sputum production, Wheezing. Gastrointestinal: Denies: Abdominal Pain, Constipation, Diarrhea, Nausea, Vomiting. Genitourinary: Denies: Dysuria, Frequency, Hematuria. Musculoskeletal: Denies: Arm Pain, Back Pain, Foot Pain. Skin: Reports: Wounds. Denies: Dryness. Neurological: Denies: Balance problems, Double vision, Change in Speech, Slurred speech, Confusion. Psychiatric: Denies: Anxiety, Depression. Endocrine: Denies: Change in Body Habitus, Polydipsia, Polyuria Patient Problems: Active and Suspected Problems Facial cellulitis (Acute) - Physical Exam Vitals/I&O's: General: Alert, Oriented x3, Cooperative. HEENT: PERRLA, EOMI. There is redness and swelling right side of face. There are healed dog bite incisions on the right preauricular area by helical root (2.5 cm), right cheek by lower eyelid (3 cm), and right medial cheek by oral c ommissure (3 cm). No fluctuance. No purulent drainage. Some tenderness to palpation. Oral: Moist Mucosa. Neck: Supple, nontender. No cervical adenopathy. Lungs: Clear to auscultation. Cardiovascular: Regular rate, Regular Rhythm. Abdomen: Soft, Non-Distended. Extremities: No clubbing, No cyanosis, No edema Lymphatic: No cervical, supraclavicular, or axillary adenopathy. Neurological: Cranial nerves II-XII grossly intact. Psych/Mental Status: Normal Affect, Appropriate. Vital Signs Temp Pulse Resp BP Pulse Ox 97.5 F L 87 16 118/79 100 08/26/20 15:09 08/26/20 15:09 08/26/20 15:09 08/26/20 15:09 08/26/20 15:09 Oxygen Delivery Method Room Air Weight: 214 lb 4 oz Body Mass Index (BMI) 36.8 Intake and Output for Last 24 Hours 08/24/20 08/25/20 08/26/20 23:59 23:59 23:59 Intake Total 3576.5 / 3576.5 2205.25 / 2205.25 Balance 3576.5 / 3576.5 2205.25 / 2205.25 Microbiology Past 72 Hours 08/25/20 16:45 Bite - Aerobic & Anaerobic Swabs Gram Stain - Final 08/25/20 16:45 Bite - Aerobic & Anaerobic Swabs Wound Culture - Preliminary Laboratory Results 08/26/20 05:02: WBC 9.0, RBC 3.08 L, Hgb 9.3 L, Hct 28.2 L, MCV 91.6, MCH 30.2, MCHC 33.0, RDW Std Deviation 42.7, RDW Coeff of Sergio 12.8, Plt Count 321, MPV 8.7, Immature Gran % (Auto) 0.400, Neut % (Auto) 74.2 H, Lymph % (Auto) 15.6 L, [place] % (Auto) 6.6, Eos % (Auto) 2.6, Baso % (Auto) 0.6, Absolute Neuts (auto) 6.7, Absolute Lymphs (auto) 1.40, Nucleated RBC % 0 08/26/20 05:02: Sodium 138, Potassium 3.5, Chloride 106, Carbon Dioxide 25.0, Anion Gap 7, BUN 8, Creatinine 0.72, Estim Creat Clear Calc 87.00, Est GFR (MDRD) Af Amer 114, Est GFR (MDRD) Non-Af 94, BUN/Creatinine Ratio 11.2, Glucose 102, Calcium 8.4 L Current Medications Acetaminophen (Acetaminophen 325 Mg Tablet) 650 mg PO Q6H PRN PRN PRN Reason: Pain Score 1-10/Temp > 100.7 F Last Admin: 08/26/20 08:53 Dose: 650 mg Documented by: Baclofen (Baclofen 10 Mg Tablet) 10 mg PO TID [facility] Last Admin: 08/26/20 14:56 Dose: 10 mg Documented by: Fluticasone Propionate (Fluticasone 0.05% 1 [place] Nasal.Sry) 2 spray NASAL DAILY [facility] Last Admin: 08/26/20 09:03 Dose: Not Given Documented by: Gabapentin (Gabapentin 300 Mg Capsule) 300 mg PO TID [facility] Last Admin: 08/26/20 14:56 Dose: 300 mg Documented by: Ceftriaxone Sodium (Rocephin) 1 gm in 50 mls @ 100 mls/hr IV Q12 [facility] Last Infusion: 08/26/20 09:23 Dose: Infused Documented by: Metronidazole (Flagyl) 500 mg in 100 mls @ 100 mls/hr IV Q8 [facility] Last Infusion: 08/26/20 15:55 Dose: Infused Documented by: Sodium Chloride () 250 mls @ 15 mls/hr IV .[id number] PRN PRN Reason: Saline Flush Last Infusion: 08/26/20 15:12 Dose: 0 mls/hr Documented by: Sodium Chloride () 250 mls @ 15 mls/hr IV .[id number] PRN PRN Reason: Additional IVPB Infusion Metoclopramide HCl (Metoclopramide 10 Mg Tablet) 10 mg PO TID PRN PRN PRN Reason: NAUSEA Morphine Sulfate (Morphine 2 Mg/Ml Syringe) 2 mg IV Q4H PRN PRN PRN Reason: Pain Score 6-10 Last Admin: 08/26/20 12:37 Dose: 2 mg Documented by: Ondansetron HCl (Ondansetron 4 Mg/2 Ml Vial) 4 mg IV Q8H PRN PRN PRN Reason: NAUSEA/VOMITING Oxycodone HCl (Oxycodone 5 Mg Tablet) 5 mg PO Q4H PRN PRN PRN Reason: Pain Score 4-5 Last Admin: 08/26/20 17:31 Dose: 5 mg Documented by: Pantoprazole Sodium (Pantoprazole Sodium 40 Mg Tablet) 40 mg PO DAILY [facility] Last Admin: 08/26/20 09:03 Dose: 40 mg Documented by: Senna/Docusate Sodium (Senna/Docusate Sodium 1 Tablet) 2 tablet PO BID PRN PRN PRN Reason: Constipation Sodium Chloride (0.9% Saline Lock 10 Ml Syringe) 10 - 40 ml IV UD PRN PRN Reason: SALINE FLUSH Zolpidem Tartrate (Zolpidem Tartrate 5 Mg Tablet) 5 mg PO QHS PRN PRN PRN Reason: INSOMNIA Last Admin: 08/25/20 21:04 Dose: 5 mg Documented by: Assessment/Plan All Active Problems Open wound of face due to dog bite (Acute) Dog bite (Acute) Facial cellulitis (Acute) 1. Right facial cellulitis from multiple dog bites wound infection. 2. Crohn's disease on Stelara (Ustekinumab) and Prednisone. CT reviewed. No abscess seen. Patient is currently on Ceftriaxone and Flagyl. Will change to Vancomycin and Unasyn. Continue head elevation. Will observe closely. If improvement not seen, will need to initially remove the sutures which we can attempt to do at the bedside to promote drainage. If we can, then can start daily Silver dressing changes and allow the wounds to heal in secondarily. After healing has occurred, can discuss the need for complex secondary wound closure with possible skin flaps of complex scar revisions if there are any scar contour deformities present. She is immunocompromised from her Crohn's disease and being on Prednisone and Stelara (Ustekinumab) increases risk of suboptimal healing. If sutures need to be removed, then a wound culture will be obtained. A positive wound culture will necessitate antibiotic therapy. If drainage not adequate after removing sutures at bedside, then will need operative intervention with incision and drainage and excisional debridement of the multiple dog bites wound infection. Surgery will be done under general anesthesia. Patient was informed of the risks and complications of the procedure including alternatives to surgery. These were discussed with the patient personally. Patient voices understanding and wishes to proceed. Patient understands the wounds will be left open after surgery. Inpatient E&M: 73956 Init Hosp L2 - ICD-10 - L03.211, W54.0xxxA, S01.85xA, Z87.19, Z79.899, Z79.52
--- NOTE | 2020-08-26 18:17 | PCM.RX.CS ---
Consult Pharmacy has been consulted to manage selected antiobiotic: Vancomycin Type of Consult: New start Suspected Infection: Skin/Soft tissue Labs: Sodium 138 mmol/L (136-145) 08/26/20 05:02 Potassium 3.5 mmol/L (3.5-5.1) 08/26/20 05:02 Chloride 106 mmol/L (98-107) 08/26/20 05:02 Carbon Dioxide 25.0 mmol/L (21.0-32.0) 08/26/20 05:02 Anion Gap 7 (5-15) 08/26/20 05:02 BUN 8 mg/dL (7-18) 08/26/20 05:02 Creatinine 0.72 mg/dL (0.55-1.02) 08/26/20 05:02 Est GFR (MDRD) Af Amer 114 mL/min (>60) 08/26/20 05:02 Est GFR (MDRD) Non-Af 94 mL/min (>60) 08/26/20 05:02 BUN/Creatinine Ratio 11.2 RATIO (-) 08/26/20 05:02 Glucose 102 mg/dL (74-106) 08/26/20 05:02 Microbiology: Microbiology 08/25/20 16:45 Bite - Aerobic & Anaerobic Swabs Gram Stain - Final 08/25/20 16:45 Bite - Aerobic & Anaerobic Swabs Wound Culture - Preliminary Goal Trough: 10-15 mcg/mL Pharmacy Plan for Drug Dosing: NEW START IV VANCOMYCIN Consulting Physician: DMITRIY Indication: CELLULITIS Goal Trough: 10-15 MG/DL SrCr: 0.72 CrCl: 113 ML/MIN (USING ADJUSTED BW OF 71.6KG) Comments: PRELIM WOUND CX WITH RARE GPC Vancomycin Dose: 1500MG Q12H STARTING AT 1900 Pharmacy Service will continue to monitor and adjust dosing as required. Labs to be done on [date and time ordered]: 08/28 @ 8837
[2020-08-26] MEDS: 0.9% Saline Lock 10 ML Syringe IV (18:59)
[2020-08-26 21:10] VITALS: BP 124/76; PULSE 94; RESP 16; TEMP 37.1; O2SAT 100
[2020-08-26] MEDS: Zolpidem Tartrate 5 MG Tablet PO (21:34)
[2020-08-27] VITALS (16 sets, daily range): BP systolic 102–134; BP diastolic 66–95; PULSE 74–96; RESP 16–18; TEMP 36.1–36.7; O2SAT 93–100; BMI 36.8
[2020-08-27] MEDS: oxyCODONE 5 MG Tablet PO ×3 (02:18→19:59)
[2020-08-27] MEDS: Morphine 2 MG/ML Syringe IV ×3 (05:29→21:22)
[2020-08-27] MEDS: Gabapentin 300 MG Capsule PO ×2 (05:29→21:17)
[2020-08-27] MEDS: Baclofen 10 MG Tablet PO ×2 (05:29→21:17)
--- NOTE | 2020-08-27 07:45 | PN_ITS ---
Patient Problems: Active and Suspected Problems Facial cellulitis (Acute) Reason for Visit: Follow-up for right facial cellulitis due to dog bite. Objective: Patient has seropurulent drainage from the sutured line of right face. Right face and neck is painful. No fever or chills. Patient seen by Dr. Denney. Physical exam General: Alert, Oriented x3, Cooperative, mild distress due to facial pain HEENT: Sutured wound on the right face. Bojorquez, seropurulent drainage from the level of the suture line. Tenderness. On the right side of the face. Extraocular muscle intact. Mild right lateral periorbital edema and tenderness. Oral: Tenderness on the buccal mucosal site on the right side. No purulent drainage seen on the oral side. Neck: Mild tenderness on the right side of the neck but no discrete lymph node palpable, may be matted. Supple, No JVD, Negative Carotid Bruits Lungs: Air entry diminished in bilateral lung bases. No crepitation/rhonchi Cardiovascular: Regular rate, Regular Rhythm, Normal S1, Normal S2, No murmurs Abdomen: Bowel Sounds Present, Soft, Non Tender, Non-Distended. Surgical scar ryley in abdomen. Status post colectomy : No renal angle tenderness. No suprapubic tenderness. Extremities: No edema, Capillary Refill Less than 3 Seconds Skin: No rashes, No breakdown Musculoskeletal: No Tenderness to Palpation of Joints or Extremities Neurological: Cranial nerves II-XII grossly intact, Deep Tendon Reflexes 2+/4 and Symmetrical, Neuro grossly intact Psych/Mental Status: Normal Affect, Appropriate. Vitals/I&O's: Vital Signs Temp Pulse Resp BP Pulse Ox 98.1 F 80 16 119/70 99 08/27/20 03:10 08/27/20 03:10 08/27/20 03:10 08/27/20 03:10 08/27/20 07:21 Oxygen Delivery Method Room Air Weight: 214 lb 4 oz Body Mass Index (BMI) 36.8 Intake and Output for Last 24 Hours 08/25/20 08/26/20 08/27/20 23:59 23:59 23:59 Intake Total 3576.5 / 3576.5 2847.25 / 3247.25 1224 / 1224 Balance 3576.5 / 3576.5 2847.25 / 3247.25 1224 / 1224 Microbiology Past 72 Hours 08/25/20 16:45 Bite - Aerobic & Anaerobic Swabs Gram Stain - Final 08/25/20 16:45 Bite - Aerobic & Anaerobic Swabs Wound Culture - Preliminary Current Medications Acetaminophen (Acetaminophen 325 Mg Tablet) 650 mg PO Q6H PRN PRN PRN Reason: Pain Score 1-10/Temp > 100.7 F Last Admin: 08/26/20 19:54 Dose: 650 mg Documented by: Baclofen (Baclofen 10 Mg Tablet) 10 mg PO TID [facility] Last Admin: 08/27/20 05:29 Dose: 10 mg Documented by: Fluticasone Propionate (Fluticasone 0.05% 1 [place] Nasal.Sry) 2 spray NASAL DAILY [facility] Last Admin: 08/26/20 09:03 Dose: Not Given Documented by: Gabapentin (Gabapentin 300 Mg Capsule) 300 mg PO TID [facility] Last Admin: 08/27/20 05:29 Dose: 300 mg Documented by: Sodium Chloride () 250 mls @ 15 mls/hr IV .[id number] PRN PRN Reason: Saline Flush Last Admin: 08/26/20 21:32 Dose: 15 mls/hr Documented by: Sodium Chloride () 250 mls @ 15 mls/hr IV .[id number] PRN PRN Reason: Additional IVPB Infusion Ampicillin Sodium/Sulbactam (Sodium 3 gm/ Sodium Chloride) 112 mls @ 150 mls/hr IV Q6 [facility] Last Infusion: 08/27/20 06:19 Dose: Infused Documented by: Vancomycin IV Pharmacy to Dose (1 ea/ Sodium Chloride) 500 mls @ 250 mls/hr IV X1 PRN; Protocol PRN Reason: Rx to Dose Vancomycin HCl 1,500 mg/ (Sodium Chloride) 530 mls @ 250 mls/hr IV Q12H [facility] Last Admin: 08/27/20 06:23 Dose: 250 mls/hr Documented by: Metoclopramide HCl (Metoclopramide 10 Mg Tablet) 10 mg PO TID PRN PRN PRN Reason: NAUSEA Morphine Sulfate (Morphine 2 Mg/Ml Syringe) 2 mg IV Q4H PRN PRN PRN Reason: Pain Score 6-10 Last Admin: 08/27/20 05:29 Dose: 2 mg Documented by: Ondansetron HCl (Ondansetron 4 Mg/2 Ml Vial) 4 mg IV Q8H PRN PRN PRN Reason: NAUSEA/VOMITING Oxycodone HCl (Oxycodone 5 Mg Tablet) 5 mg PO Q4H PRN PRN PRN Reason: Pain Score 4-5 Last Admin: 08/27/20 06:28 Dose: 5 mg Documented by: Pantoprazole Sodium (Pantoprazole Sodium 40 Mg Tablet) 40 mg PO DAILY [facility] Last Admin: 08/26/20 09:03 Dose: 40 mg Documented by: Senna/Docusate Sodium (Senna/Docusate Sodium 1 Tablet) 2 tablet PO BID PRN PRN PRN Reason: Constipation Sodium Chloride (0.9% Saline Lock 10 Ml Syringe) 10 - 40 ml IV UD PRN PRN Reason: SALINE FLUSH Last Admin: 08/26/20 18:59 Dose: 20 ml Documented by: Zolpidem Tartrate (Zolpidem Tartrate 5 Mg Tablet) 5 mg PO QHS PRN PRN PRN Reason: INSOMNIA Last Admin: 08/26/20 21:34 Dose: 5 mg Documented by: STROKE Vital Signs/Narrative: Vital Signs Pulse Ox 08/27/20 07:21 99 Medical Necessity - Tobacco Use Smoking Status: Never smoker Assessment/Plan All Active Problems Open wound of face due to dog bite (Acute) Dog bite (Acute) Facial cellulitis (Acute) This is a 45 years old female patient presented to the emergency room because of worsening right facial pain, swelling and redness after she had dog bite 2 days ago, was on Augmentin without improvement and she is being admitted for treatment with IV antibiotics. #1 acute right facial cellulitis/multiple lacerations status post suturing due to dog bite: Antibiotic is updated. Patient currently on vancomycin and Unasyn. Rocephin and Plavix discontinued. Plan for opening of the sutured wound today by Dr. Denney. Preliminary Gram stain of the deep wound culture shows gram- positive kristyn, staph species and gram-negative kristyn. CT sinus or face shows cellulitis on the right side but no abscess. #2 Crohn's disease with history of colectomy: She has chronic diarrhea and chronic abdominal pain.She had colectomy and multiple surgeries for Crohn's disease, status post J-pouch. She has been on Stelara injections every 8 weeks. She is not on any long-term steroids. #3 fibromyalgia/arthritis: Continue baclofen, gabapentin, OxyIR as needed. #4 DVT prophylaxis: Low risk patient, no prophylaxis indicated. Clinical Impression(s) from Imaging Studies Facial/Sinus 08/25/20 09:02 IMPRESSION: Cellulitis in the right side of the face but no abscess. Microbiology Past 72 Hours 08/25/20 09:19 Blood Culture (Wb) - Anticubital Left Blood Culture - Preliminary No growth in 48 hours. 08/25/20 09:19 Blood Culture (Wb) - Right Hand Blood Culture - Preliminary No growth in 48 hours. 08/27/20 13:30 Mucosa - Nose SARS-CoV-2 Antigen (Rapid) - Final 08/25/20 16:45 Bite - Aerobic & Anaerobic Swabs Gram Stain - Final 08/25/20 16:45 Bite - Aerobic & Anaerobic Swabs Wound Culture - Preliminary Gram positive kristyn Staphylococcus species Gram negative kristyn 08/25/20 16:45 Bite - Aerobic & Anaerobic Swabs Anaerobic Culture - Preliminary Checking for anaerobes, further studies to follow. Inpatient E&M: 02894 Subs Hosp L2
[2020-08-27] MEDS: Pantoprazole Sodium 40 MG Tablet PO (09:11)
[2020-08-27] MEDS: Acetaminophen 325 MG Tablet 650 MG PO ×2 (09:11→19:59)
[2020-08-27] MEDS: Ondansetron 4 MG/2 ML Vial IV (09:11)
[2020-08-27] MEDS: 0.9% Saline Lock 10 ML Syringe IV ×4 (09:14→23:01)
[2020-08-27] MEDS: Glycerin/Hypromellose/PEG400 15 ml Bottle 2 DRP RIGHT EYE ×2 (12:05→20:03)
[2020-08-27] MEDS: Fluconazole 100 MG Tablet 200 MG PO (12:07)
--- NOTE | 2020-08-27 13:27 | NURSING ---
pt transported off unit at this time via bed for surgery
[2020-08-27] MEDS: Lactated Ringers 1,000 ML 100 ML IV ×2 (14:02→17:23)
[2020-08-27] MEDS: Lidocaine 1% /Epi 1:100 (20ml) 20 ML Vial (15:39)
--- NOTE | 2020-08-27 15:50 | OP.PCM_ITS ---
Report of Operation Date of Procedure: 08/27/20 Pre-Operative Diagnosis: 1. Right facial cellulitis from multiple dog bites wound infection (right preauricular area by helical root, right cheek by lower eyelid, and right medial cheek by oral commissure). 2. Crohn's disease on Stelara (Ustekinumab) and Prednisone. Post-Operative Diagnosis: 1. Right facial cellulitis from multiple dog bites wound infection abscesses (right preauricular area by helical root, right cheek by lower eyelid, and right medial cheek by oral commissure). 2. Crohn's disease on Stelara (Ustekinumab) and Prednisone. Surgery/Procedure Performed:: Surgical preparation right face with incision and drainage and excisional debridement multiple dog bites wound infection abscesses (right preauricular area by helical root, right cheek by lower eyelid, and right medial cheek by oral commissure). Description of Surgical Findings:: The patient is a 45 year old F with past medical history of Crohn's disease and on Stelara (Ustekinumab) and Prednisone sustained complex dog bite wounds to the right side of her face (right preauricular area by helical root, right cheek near lower eyelid, and right medial cheek by oral commissure) om 08/23/20. It was a family dog. She went to the ED where the dog bite wounds were cleansed and suture repaired with single layer of Nylon sutures. She was discharged on Augmentin. Over the next couple of days she developed worsening pain and redness and swelling around the dog bite incisions which prompted a return visit to the ED on 08/25/20. WBC was 13.5. Lactate was normal at 0.7. She stated she had a fever at home. In the ED her temperature was normal. She was started on Ceftriaxone and Flagyl. CT Face was done which showed cellulitis in the right side of the face but no abscess. This morning her temperature did increase to 99.5. Her WBC decreased to normal at 9.0. With persistent redness and pain and swelling, I was asked to evaluate this patient for surgical options for treatment. The swelling slightly improved but the redness was persistent despite IV antibiotics. Operative intervention was recommended. Patient was informed of the risks and complications of the procedure including alternatives to surgery. These were discussed with the patient personally. Patient voices understanding and wishes to proceed. Size of dog bite wound right preauricular area by helical root - 3 x 1.5 x 1 cm. Size of dog bite wound right cheek by lower eyelid - 3 x 3 x 1 cm. Size of dog bite wound right medial cheek by oral commissure - 3.5 x 1.5 x 2 cm. I used Surgicel absorbable hemostat, 4 x 8 inches. Reference Number - 1952. Lot Number - [id number]. Expiration - 03/12/24. compliance monitor: None Type of Anesthesia:: General Specimen's removed: Multiple dog bite wounds infection abscesses right face to Microbiology. Drains: None. Estimated Blood Loss (mL): 100 ml. Description of Procedure: Patient was taken to OR in supine position and was placed under general anesthesia. The right face was prepped and draped in the usual fashion. SCD's were not placed. She is getting chemoprophylaxis with Lovenox. Perioperative antibiotics were given intravenously. For the procedure, I wore an N95 mask and wore proper eyewear protection. Using xylocaine with epinephrine, the multiple dog bite wounds (right preauricular area by helical root, right cheek by lower eyelid, and right medial cheek by oral commissure) were infiltrated to aid in postoperative pain relief. The sutures were removed that were placed in the ED on 08/23/20. A single layer of Nylon sutures were removed. Copious amounts of purulent drainage was expressed from all three dog bite wounds. The wounds extended to the underlying muscle. A lot of fat necrosis was seen. A curette was used to debride the deeper tissue. By the right preauricular wound and right cheek wound were stab wounds that communicated with the main dog bite wounds. The tissue between the stab wound and the main dog bite wound was excised and debrided to allow better drainage and wound care. The pus along with the curetted tissue and the debrided tissue was sent to Microbiology for culture. A positive culture may necessitate antibiotic modification. There was some bleeding noted that was controlled with gauze compression and electrocautery except for the right preauricular wound. In addition, I needed control of some bleeding involving the superficial portion of the parotid gland with 4-0 Vicryl figure of eight sutures. The dog bite wound abscesses were copiously irrigated with saline. Additional control of the wounds were obtained with Surgicel absorbable hemostat. I then dressed the wounds with 4x4 gauze and Betadine followed by dry 4x4 gauze compression dressing. The size of the multiple dog bite wound abscesses were 3 x 1.5 x 1 cm for the right preauricular area by helical root, 3 x 3 x 1 cm for the right cheek by the lower eyelid, and 3.5 x 1.5 x 2 cm for the right medial cheek by oral commissure. Patient tolerated the procedure well and was sent to PACU in satisfactory condition. Patient will be sent upstairs for continued postop care. Silver dressing changes will begin tomorrow. Will consider placement of a PICC line for correction IV antibiotics. Depending on the healing process, will consider complex secondary wound closure at the appropriate time. Grafts/Implants Used: Surgicel - Complications None. - Admit VTE Documentation VTE Present on Admission: No VTE Mechan Device Prophylaxis: None VTE Pharm Prophylaxis ordered?: Yes Surgery Charges CPT - 03668 ICD-10 - S01.85xA, W54.0xxxA, L02.01, Z87.19, Z79.899, Z79.52 68219 L02.01, W54.0xxxA, S01.85xA, Z87.19, Z79.899, Z79.52 03431-96 L02.01, W54.0xxxA, S01.85xA, Z87.19, Z79.899, Z79.52 04086-26 L02.01, W54.0xxxA, S01.85xA, Z87.19, Z79.899, Z79.52
--- NOTE | 2020-08-27 18:40 | NURSING ---
technology internship called at this time for PICC line placement. They will attempt to get a nurse here this evening, but due to scheduling, it may not be able to be placed until 08/28.
[2020-08-27] MEDS: Zolpidem Tartrate 5 MG Tablet PO (22:28)
[2020-08-28 02:23] VITALS: BP 99/60; PULSE 78; RESP 16; TEMP 36.7; O2SAT 95
[2020-08-28] MEDS: oxyCODONE 5 MG Tablet PO ×4 (02:28→22:49)
[2020-08-28] MEDS: Glycerin/Hypromellose/PEG400 15 ml Bottle 2 DRP RIGHT EYE ×3 (05:28→18:30)
[2020-08-28] MEDS: Enoxaparin 40 MG/0.4 ML Syringe SC (05:32)
[2020-08-28] MEDS: Baclofen 10 MG Tablet PO ×3 (05:32→22:49)
[2020-08-28] MEDS: Morphine 2 MG/ML Syringe IV ×2 (05:32→13:03)
[2020-08-28] MEDS: Gabapentin 300 MG Capsule PO ×3 (05:32→22:49)
[2020-08-28 06:22] VITALS: BP 120/80; PULSE 77; RESP 18; TEMP 36.8; O2SAT 100
[2020-08-28] MEDS: 0.9% Saline Lock 10 ML Syringe IV ×2 (06:28→22:50)
[2020-08-28] MEDS: Acetaminophen 325 MG Tablet 650 MG PO ×3 (06:31→22:49)
[2020-08-28 07:06] LABS: Absolute Neutrophil Count 3.4 X10^3/uL (2.0-7.7); Basophil# 0.03 X10^3/uL; Basophil% 0.6 % (0-1); Eosinophil# 0.38 X10^3/uL; Eosinophils% 7.2 % (0-5); Hematocrit 29.6 % (37-47); Hemoglobin 9.1 g/dL (12.0-15.0); Lymphocyte % 18.9 % (19-41); Mean Corp Hgb Conc 30.7 g/dL (32-36); Mean Corpuscular Hgb 28.7 pg (27.0-32.0); Mean Corpuscular Volume 93.4 fL (81-99); Mean Platelet Vol. 8.6 fl (6.2-12.0); Monocyte# 0.47 X10^3/uL; Monocyte% 8.9 % (0-10); NRBC Flagged by Analyzer 0 % (0-5); Platelet Count 381 K/mm3 (150-450); RBC Distribution Width CV 12.9 % (11.6-14.6); RBC Distribution Width SD 44.3 fl (35.1-43.9); Red Blood Count 3.17 M/mm3 (4.2-5.4); White Blood Count 5.3 K/mm3 (4.4-11.0)
[2020-08-28 07:34] LABS: Vancomycin, Trough Level 13.9 ug/mL (5.0-15.0)
[2020-08-28 07:37] LABS: ALB/GLOB Ratio 0.6 RATIO (0.9-2.4); AST(SGOT) 27 U/L (15-37); Alanine Aminotransfer ALT/SGPT 35 U/L (13-56); Albumin, Serum 2.5 g/dL (3.2-5.0); Alkaline Phosphatase 201 U/L (45-117); Anion Gap 5 (5-15); BUN 5 mg/dL (7-18); BUN/Creat Ratio 7.3 RATIO (10-20); Calcium,Total 8.3 mg/dL (8.5-10.1); Chloride 106 mmol/L (98-107); Creatinine, Serum 0.69 mg/dL (0.55-1.02); EST Glomerular Filtration Rate 99 mL/min (>60); Est Glom Filt Rate - Afr Amer 120 mL/min (>60); Estimated Creatinine Clearance 90.78 ml/min; Glucose 98 mg/dL (74-106); Potassium 3.5 mmol/L (3.5-5.1); Prealbumin 13.1 mg/dL (20.0-40.0); Protein, Total 6.5 g/dL (6.4-8.2); Sodium Level 142 mmol/L (136-145)
[2020-08-28 08:04] VITALS: O2SAT 100
--- NOTE | 2020-08-28 08:34 | PCM.RX.CS ---
Consult Pharmacy has been consulted to manage selected antiobiotic: Vancomycin Type of Consult: Follow-up Suspected Infection: Skin/Soft tissue Prior Doses of Antibiotics Received/Current Regimen: 1500MG IV Q12H Labs: Sodium 142 mmol/L (136-145) 08/28/20 06:35 Potassium 3.5 mmol/L (3.5-5.1) 08/28/20 06:35 Chloride 106 mmol/L (98-107) 08/28/20 06:35 Carbon Dioxide 31.0 mmol/L (21.0-32.0) 08/28/20 06:35 Anion Gap 5 (5-15) 08/28/20 06:35 BUN 5 mg/dL (7-18) L 08/28/20 06:35 Creatinine 0.69 mg/dL (0.55-1.02) 08/28/20 06:35 Est GFR (MDRD) Af Amer 120 mL/min (>60) 08/28/20 06:35 Est GFR (MDRD) Non-Af 99 mL/min (>60) 08/28/20 06:35 BUN/Creatinine Ratio 7.3 RATIO (10-20) L 08/28/20 06:35 Glucose 98 mg/dL (74-106) 08/28/20 06:35 Vancomycin Trough 13.9 ug/mL (5.0-15.0) 08/28/20 06:35 Microbiology: Microbiology 08/25/20 16:45 Bite - Aerobic & Anaerobic Swabs Gram Stain - Final 08/25/20 16:45 Bite - Aerobic & Anaerobic Swabs Wound Culture - Final [place] histolytica Staphylococcus epidermidis Pasteurella canis 08/25/20 16:45 Bite - Aerobic & Anaerobic Swabs Anaerobic Culture - Preliminary Checking for anaerobes, further studies to follow. 08/25/20 09:19 Blood Culture (Wb) - Anticubital Left Blood Culture - Preliminary No growth in 48 hours. 08/25/20 09:19 Blood Culture (Wb) - Right Hand Blood Culture - Preliminary No growth in 48 hours. 08/27/20 13:30 Mucosa - Nose SARS-CoV-2 Antigen (Rapid) - Final Weight used for dosin.2 kg Estimated Creatinine Clearance: 87 ml/min Goal Trough: 10-15 mcg/mL Pharmacy Plan for Drug Dosing: Trough today 13.9 (goal range 10-15mcg/ml). Renal Cr 0.72 with Cl ~87ml/min. Will continue same dose and get another trough level on 08.29.20 per protocol. Pharmacy Service will continue to monitor and adjust dosing as required. Follow-Up Labs: Trough Vancomycin - 08.29.20 @7846
[2020-08-28 08:45] VITALS: BP 118/76; PULSE 86; RESP 18; TEMP 36.7; O2SAT 97
[2020-08-28] MEDS: Fluconazole 100 MG Tablet 200 MG PO (08:49)
[2020-08-28] MEDS: Pantoprazole Sodium 40 MG Tablet PO (08:50)
--- NOTE | 2020-08-28 08:50 | NURSING ---
[employer] called, stated the nurse should be here aroud 10 am for PICC line placement.
[2020-08-28] MEDS: Ondansetron 4 MG/2 ML Vial IV (10:42)
[2020-08-28] MEDS: Metoclopramide 10 MG Tablet PO (13:03)
--- NOTE | 2020-08-28 14:44 | NURSING ---
wound photo: right face
--- NOTE | 2020-08-28 14:44 | NURSING ---
wound photo: right cheek
[2020-08-28 14:45] VITALS: BP 125/78; PULSE 99; RESP 16; TEMP 36.7; O2SAT 100
--- NOTE | 2020-08-28 14:49 | PCM.PN.SRG ---
Patient Problems: Active and Suspected Problems Open wound of face due to dog bite (Acute) Facial cellulitis (Acute) Subjective: Postop #1 Patient is resting comfortably. Tolerated the Silver dressing change reasonably well. - Physical Exam Vitals/I&O's: Vital Signs Temp Pulse Resp BP Pulse Ox 98.1 F 99 16 125/78 H 100 08/28/20 14:45 08/28/20 14:45 08/28/20 14:45 08/28/20 14:45 08/28/20 14:45 Oxygen Flow Rate (L/min) 2 Oxygen Delivery Method Room Air Weight: 214 lb 3.994 oz Body Mass Index (BMI) 36.8 Intake and Output for Last 24 Hours 08/27/20 08/28/20 23:59 23:59 Intake Total 4353.50 / 4603.50 3411.67 / 3411.67 Output Total 2200 / 2200 Balance 4353.50 / 4103.50 1211.67 / 1211.67 General: Alert, Oriented x3 HEENT: PERRLA, EOMI Oral: Moist Mucosa Neck: Supple Abdomen: Soft, Non-Distended Skin: Ulcer/ Wound - facial wounds are stable. No active bleeding noted. Surgicel removed at the time of the Silver dressing change which she tolerated reasonably well. Neurological: Cranial nerves II-XII grossly intact Psych/Mental Status: Normal Affect, Appropriate Microbiology Past 72 Hours 08/27/20 14:59 Tissue - Face Gram Stain - Final 08/27/20 14:59 Tissue - Face Wound Culture - Preliminary Coag Negative Staph Alpha Hemolytic Streptococcus Gram Positive Cocci 08/25/20 16:45 Bite - Aerobic & Anaerobic Swabs Gram Stain - Final 08/25/20 16:45 Bite - Aerobic & Anaerobic Swabs Wound Culture - Final [place] histolytica Staphylococcus epidermidis Pasteurella canis 08/25/20 16:45 Bite - Aerobic & Anaerobic Swabs Anaerobic Culture - Preliminary Checking for anaerobes, further studies to follow. 08/25/20 09:19 Blood Culture (Wb) - Anticubital Left Blood Culture - Preliminary No growth in 48 hours. 08/25/20 09:19 Blood Culture (Wb) - Right Hand Blood Culture - Preliminary No growth in 48 hours. 08/27/20 13:30 Mucosa - Nose SARS-CoV-2 Antigen (Rapid) - Final Laboratory Results Current Medications Acetaminophen (Acetaminophen 325 Mg Tablet) 650 mg PO Q6H PRN PRN Baclofen (Baclofen 10 Mg Tablet) 10 mg PO TID [facility] Enoxaparin Sodium (Enoxaparin 40 Mg/0.4 Ml Syringe) 40 mg SC DAILY@0600 [facility] Fluconazole (Fluconazole 100 Mg Tablet) 200 mg PO DAILY [facility] Fluticasone Propionate (Fluticasone 0.05% 1 [place] Nasal.Sry) 2 spray NASAL DAILY [facility] Gabapentin (Gabapentin 300 Mg Capsule) 300 mg PO TID [facility] Heparin Sodium (Beef Lung) (Heparin Pf Lock 10 Units/Ml 50 Units/5 Ml Syringe) 50 units IV UD PRN Ampicillin Sodium/Sulbactam (Sodium 3 gm/ Sodium Chloride) 112 mls @ 150 mls/hr IV Q6 [facility] Vancomycin IV Pharmacy to Dose (1 ea/ Sodium Chloride) 500 mls @ 250 mls/hr IV X1 PRN; Protocol Vancomycin HCl 1,500 mg/ (Sodium Chloride) 530 mls @ 250 mls/hr IV Q12H [facility] Metoclopramide HCl (Metoclopramide 10 Mg Tablet) 10 mg PO TID PRN PRN Morphine Sulfate (Morphine 2 Mg/Ml Syringe) 2 mg IV Q4H PRN PRN Nutritional Formula (Nutritional Supplement (Kane) Packet) 1 packet PO BIDCM [facility] Ondansetron HCl (Ondansetron 4 Mg/2 Ml Vial) 4 mg IV Q8H PRN PRN Oxycodone HCl (Oxycodone 5 Mg Tablet) 5 mg PO Q4H PRN PRN Pantoprazole Sodium (Pantoprazole Sodium 40 Mg Tablet) 40 mg PO DAILY [facility] Zolpidem Tartrate (Zolpidem Tartrate 5 Mg Tablet) 5 mg PO QHS PRN PRN Medical Necessity - Tobacco Use Smoking Status: Never smoker Assessment/Plan All Active Problems Abscess of face (Acute) Open wound of face due to dog bite (Acute) Dog bite (Acute) Facial cellulitis (Acute) 1. Right facial cellulitis from multiple dog bites wound infection abscesses (right preauricular area by helical root, right cheek by lower eyelid, and right medial cheek by oral commissure). 2. Crohn's disease on Stelara (Ustekinumab) and Prednisone. 3. s/p surgical preparation right face with incision and drainage and excisional debridement multiple dog bites wound infection abscesses (right preauricular area by helical root, right cheek by lower eyelid, and right medial cheek by oral commissure). Continue Vancomycin and Unasyn. Operative cultures show Coag negative Staph, Alpha hemolytic Streptococcus, and Gram positive cocci. Continue head elevation. Facial wounds are stable. No active bleeding seen. Surgicel removed. Redressed with Aquacel Silver. She tolerated it reasonably well. After healing has occurred, can discuss the need for complex secondary wound closure with possible skin flaps of complex scar revisions if there are any scar contour deformities present. She is immunocompromised from her Crohn's disease and being on Prednisone and Stelara (Ustekinumab) increases risk of suboptimal healing. A PICC line was placed in anticipation of possible IV antibiotics. Prealbumin from 08/28/20 was 13.1. Encourage nutritional supplementation with protein to help the healing process.
[2020-08-28] MEDS: Lactated Ringers 1,000 ML 100 ML IV (15:07)
--- NOTE | 2020-08-28 15:30 | PCM.PN.HOSP ---
Patient Problems: Active and Suspected Problems Facial cellulitis (Acute) Reason for Visit: Follow-up for facial cellulitis secondary to dog bite Objective: Not had any fever or chills. Heart rate and blood pressure are controlled. Right side of face is swollen and edematous and tender Physical exam General: Alert, Oriented x3, Cooperative, mild distress due to facial pain HEENT: Serous soakage of dressing on the right side of the face. Edema and tenderness present over the right face. Extraocular muscle intact. Mild right lateral periorbital edema and tenderness. Oral: Tenderness on the buccal mucosal site on the right side. No purulent drainage seen on the oral side. Neck: No discrete lymph node palpable but may be matted cervical lymphadenopathy on the right side. No JVD, Negative Carotid Bruits Lungs: Air entry diminished in bilateral lung bases. No crepitation/rhonchi Cardiovascular: Regular rate, Regular Rhythm, Normal S1, Normal S2, No murmurs Abdomen: Bowel Sounds Present, Soft, Non Tender, Non-Distended. Surgical scar ryley in abdomen. Status post colectomy : No renal angle tenderness. No suprapubic tenderness. Extremities: No edema, Capillary Refill Less than 3 Seconds Skin: No rashes, No breakdown Musculoskeletal: No Tenderness to Palpation of Joints or Extremities Neurological: Cranial nerves II-XII grossly intact, Deep Tendon Reflexes 2+/4 and Symmetrical, Neuro grossly intact Psych/Mental Status: Normal Affect, Appropriate. Vitals/I&O's: Vital Signs Temp Pulse Resp BP Pulse Ox 98.1 F 99 16 125/78 H 100 08/28/20 14:45 08/28/20 14:45 08/28/20 14:45 08/28/20 14:45 08/28/20 14:45 Oxygen Flow Rate (L/min) 2 Oxygen Delivery Method Room Air Weight: 214 lb 3.994 oz Body Mass Index (BMI) 36.8 Intake and Output for Last 24 Hours 08/26/20 08/27/20 08/28/20 23:59 23:59 23:59 Intake Total 2847.25 / 3247.25 4353.50 / 4603.50 1797.17 / 1797.17 Output Total 2200 / 2200 Balance 2847.25 / 3247.25 4353.50 / 4103.50 -402.83 / -402.83 Microbiology Past 72 Hours 08/27/20 14:59 Tissue - Face Gram Stain - Final 08/27/20 14:59 Tissue - Face Wound Culture - Preliminary Mixed Gram Positive Organisms 08/25/20 16:45 Bite - Aerobic & Anaerobic Swabs Gram Stain - Final 08/25/20 16:45 Bite - Aerobic & Anaerobic Swabs Wound Culture - Final [place] histolytica Staphylococcus epidermidis Pasteurella canis 08/25/20 16:45 Bite - Aerobic & Anaerobic Swabs Anaerobic Culture - Preliminary Checking for anaerobes, further studies to follow. 08/25/20 09:19 Blood Culture (Wb) - Anticubital Left Blood Culture - Preliminary No growth in 48 hours. 08/25/20 09:19 Blood Culture (Wb) - Right Hand Blood Culture - Preliminary No growth in 48 hours. 08/27/20 13:30 Mucosa - Nose SARS-CoV-2 Antigen (Rapid) - Final Laboratory Results 08/28/20 06:35: Vancomycin Trough 13.9 08/28/20 06:35: WBC 5.3, RBC 3.17 L, Hgb 9.1 L, Hct 29.6 L, MCV 93.4, MCH 28.7, MCHC 30.7 L D, RDW Std Deviation 44.3 H, RDW Coeff of Sergio 12.9, Plt Count 381, MPV 8.6, Immature Gran % (Auto) 0.400, Neut % (Auto) 64.0, Lymph % (Auto) 18.9 L, [place] % (Auto) 8.9, Eos % (Auto) 7.2 H, Baso % (Auto) 0.6, Absolute Neuts (auto) 3.4, Absolute Lymphs (auto) 1.00, Nucleated RBC % 0 08/28/20 06:35: Sodium 142, Potassium 3.5, Chloride 106, Carbon Dioxide 31.0, Anion Gap 5, BUN 5 L, Creatinine 0.69, Estim Creat Clear Calc 90.78, Est GFR (MDRD) Af Amer 120, Est GFR (MDRD) Non-Af 99, BUN/Creatinine Ratio 7.3 L, Glucose 98, Calcium 8.3 L, Total Bilirubin 0.20, AST 27, ALT 35, Alkaline Phosphatase 201 H, C-React Prot Ext Range 28.10 H, Total Protein 6.5, Albumin 2.5 L, Globulin 4.0, Albumin/Globulin Ratio 0.6 L, Prealbumin 13.1 L Current Medications Acetaminophen (Acetaminophen 325 Mg Tablet) 650 mg PO Q6H PRN PRN PRN Reason: Pain Score 1-10/Temp > 100.7 F Last Admin: 08/28/20 15:06 Dose: 650 mg Documented by: Baclofen (Baclofen 10 Mg Tablet) 10 mg PO TID [facility] Last Admin: 08/28/20 13:10 Dose: 10 mg Documented by: Enoxaparin Sodium (Enoxaparin 40 Mg/0.4 Ml Syringe) 40 mg SC DAILY@0600 [facility] Last Admin: 08/28/20 05:32 Dose: 40 mg Documented by: Fluconazole (Fluconazole 100 Mg Tablet) 200 mg PO DAILY [facility] Last Admin: 08/28/20 08:49 Dose: 200 mg Documented by: Fluticasone Propionate (Fluticasone 0.05% 1 [place] Nasal.Sry) 2 spray NASAL DAILY [facility] Last Admin: 08/28/20 08:50 Dose: Not Given Documented by: Gabapentin (Gabapentin 300 Mg Capsule) 300 mg PO TID [facility] Last Admin: 08/28/20 13:10 Dose: 300 mg Documented by: Sodium Chloride () 250 mls @ 15 mls/hr IV .[id number] PRN PRN Reason: Saline Flush Last Infusion: 08/28/20 06:25 Dose: 0 mls/hr Documented by: Sodium Chloride () 250 mls @ 15 mls/hr IV .[id number] PRN PRN Reason: Additional IVPB Infusion Ampicillin Sodium/Sulbactam (Sodium 3 gm/ Sodium Chloride) 112 mls @ 150 mls/hr IV Q6 [facility] Last Infusion: 08/28/20 13:48 Dose: Infused Documented by: Vancomycin IV Pharmacy to Dose (1 ea/ Sodium Chloride) 500 mls @ 250 mls/hr IV X1 PRN; Protocol PRN Reason: Rx to Dose Vancomycin HCl 1,500 mg/ (Sodium Chloride) 530 mls @ 250 mls/hr IV Q12H [facility] Last Infusion: 08/28/20 08:52 Dose: Infused Documented by: Lactated Ringer's () 1,000 mls @ 100 mls/hr IV .Q10H [facility] Last Admin: 08/28/20 15:07 Dose: 100 mls/hr Documented by: Metoclopramide HCl (Metoclopramide 10 Mg Tablet) 10 mg PO TID PRN PRN PRN Reason: NAUSEA Last Admin: 08/28/20 13:03 Dose: 10 mg Documented by: Morphine Sulfate (Morphine 2 Mg/Ml Syringe) 2 mg IV Q4H PRN PRN PRN Reason: Pain Score 6-10 Last Admin: 08/28/20 13:03 Dose: 2 mg Documented by: Nutritional Formula ([facility]al [facility] (Kane) [facility]) [facility] Last Admin: 08/28/20 08:49 Dose: 1 packet Documented by: Ondansetron HCl (Ondansetron 4 Mg/2 Ml Vial) 4 mg IV Q8H PRN PRN PRN Reason: NAUSEA/VOMITING Last Admin: 08/28/20 10:42 Dose: 4 mg Documented by: Oxycodone HCl (Oxycodone 5 Mg Tablet) 5 mg PO Q4H PRN PRN PRN Reason: Pain Score 4-5 Last Admin: 08/28/20 15:07 Dose: 5 mg Documented by: Pantoprazole Sodium (Pantoprazole Sodium 40 Mg Tablet) 40 mg PO DAILY [facility] Last Admin: 08/28/20 08:50 Dose: 40 mg Documented by: Senna/Docusate Sodium (Senna/Docusate Sodium 1 Tablet) 2 tablet PO BID PRN PRN PRN Reason: Constipation Sodium Chloride (0.9% Saline Lock 10 Ml Syringe) 10 - 40 ml IV UD PRN PRN Reason: SALINE FLUSH Last Admin: 08/28/20 06:28 Dose: 10 ml Documented by: Zolpidem Tartrate (Zolpidem Tartrate 5 Mg Tablet) 5 mg PO QHS PRN PRN PRN Reason: INSOMNIA Last Admin: 08/27/20 22:28 Dose: 5 mg Documented by: STROKE Vital Signs/Narrative: Vital Signs Temp Pulse Resp BP Pulse Ox 08/28/20 14:45 98.1 F 99 16 125/78 H 100 Medical Necessity - Tobacco Use Smoking Status: Never smoker Assessment/Plan All Active Problems Open wound of face due to dog bite (Acute) Dog bite (Acute) Facial cellulitis (Acute) This is a 45 years old female patient presented to the emergency room because of worsening right facial pain, swelling and redness after she had dog bite 2 days ago, was on Augmentin without improvement and she is being admitted for treatment with IV antibiotics. #1 acute right facial cellulitis/multiple lacerations status post suturing due to dog bite: Antibiotic is updated. Patient currently on vancomycin and Unasyn. Rocephin and Plavix discontinued. Plan for opening of the sutured wound today by Dr. Denney. Preliminary Gram stain of the deep wound culture shows gram-positive kristyn, staph species and gram-negative kristyn. CT sinus or face shows cellulitis on the right side but no abscess. 08/28: Patient had excisional debridement after incision and drainage. Abscess in the right periauricular area, right cheek by lower eyelid and right medial cheek oral commissure. Plan for wound VAC. ID consult. Operative tissue culture shows mixed gram-positive organism. Previous culture shows multiple organisms including Pasteurella canis #2 Crohn's disease with history of colectomy: She has chronic diarrhea and chronic abdominal pain.She had colectomy and multiple surgeries for Crohn's disease, status post J-pouch. She has been on Stelara injections every 8 weeks. She is not on any long-term steroids. #3 fibromyalgia/arthritis: Continue baclofen, gabapentin, OxyIR as needed. #4 DVT prophylaxis: Low risk patient, no prophylaxis indicated. Clinical Impression(s) from Imaging Studies Facial/Sinus 08/25/20 09:02 IMPRESSION: Cellulitis in the right side of the face but no abscess. Microbiology Past 72 Hours 08/27/20 14:59 Tissue - Face Gram Stain - Final 08/27/20 14:59 Tissue - Face Wound Culture - Preliminary Mixed Gram Positive Organisms 08/25/20 16:45 Bite - Aerobic & Anaerobic Swabs Gram Stain - Final 08/25/20 16:45 Bite - Aerobic & Anaerobic Swabs Wound Culture - Final [place] histolytica Staphylococcus epidermidis Pasteurella canis 08/25/20 16:45 Bite - Aerobic & Anaerobic Swabs Anaerobic Culture - Preliminary Checking for anaerobes, further studies to follow. 08/25/20 09:19 Blood Culture (Wb) - Anticubital Left Blood Culture - Preliminary No growth in 48 hours. 08/25/20 09:19 Blood Culture (Wb) - Right Hand Blood Culture - Preliminary No growth in 48 hours. 08/27/20 13:30 Mucosa - Nose SARS-CoV-2 Antigen (Rapid) - Final Laboratory Results 08/28/20 06:35: Vancomycin Trough 13.9 08/28/20 06:35: WBC 5.3, RBC 3.17 L, Hgb 9.1 L, Hct 29.6 L, MCV 93.4, MCH 28.7, MCHC 30.7 L D, RDW Std Deviation 44.3 H, RDW Coeff of Sergio 12.9, Plt Count 381, MPV 8.6, Immature Gran % (Auto) 0.400, Neut % (Auto) 64.0, Lymph % (Auto) 18.9 L, [place] % (Auto) 8.9, Eos % (Auto) 7.2 H, Baso % (Auto) 0.6, Absolute Neuts (auto) 3.4, Absolute Lymphs (auto) 1.00, Nucleated RBC % 0 08/28/20 06:35: Sodium 142, Potassium 3.5, Chloride 106, Carbon Dioxide 31.0, Anion Gap 5, BUN 5 L, Creatinine 0.69, Estim Creat Clear Calc 90.78, Est GFR (MDRD) Af Amer 120, Est GFR (MDRD) Non-Af 99, BUN/Creatinine Ratio 7.3 L, Glucose 98, Calcium 8.3 L, Total Bilirubin 0.20, AST 27, ALT 35, Alkaline Phosphatase 201 H, C-React Prot Ext Range 28.10 H, Total Protein 6.5, Albumin 2.5 L, Globulin 4.0, Albumin/Globulin Ratio 0.6 L, Prealbumin 13.1 L Inpatient E&M: 34089 Subs Hosp L2
--- NOTE | 2020-08-28 16:07 | PCM.HP.ID ---
Problem List (1) Open wound of face due to dog bite Status: Acute Reason for Consult: cellulitis Consulted by: Dr. Bee History of Present Illness: The patient is a 45 year old F with Crohn's got scratched or bit by her dog on 08/23 while playing. Dog has been healthy, up to date on shots. Had redness, pain, came to ED, sent back home. Sx worsened on augmentin, came back 08/25 with worsened pain/redness/swelling and associated fever. Wounds were opened, had purulence. Started on vanc/unasyn/fluc. Taken to OR 08/[address] Denney for I&D. Feeling better today. No double vision or pain with eye movement. Full ROS performed and neg except as noted above. 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) Long-term current use of ustekinumab (Chronic) Fibromyalgia (Chronic) History of Crohn's disease (Chronic) Allergies/Adverse Reactions: Allergies adhesive tape Allergy (Verified 08/25/20 12:30) Rash cetirizine [From Zyrtec] Allergy (Verified 08/25/20 12:30) Other Flushed hot face infliximab [From Remicade] Allergy (Verified 08/25/20 12:30) Anaphylaxis latex Allergy (Verified 08/25/20 12:30) Rash prochlorperazine [From Compazine] Allergy (Verified 08/25/20 12:30) Other BUGS CRAWL ALL OVER ME topiramate [From Topamax] Allergy (Verified 08/25/20 12:30) Other tongue and fingertips numb sumatriptan [From Imitrex] Adverse Reaction (Verified 08/25/20 12:30) Other TACHYCARDIA Home Medications: Ambulatory Orders Medication Instructions Recorded Anti-Diarrheal 4 tab PO DAILY 02/05/17 Baclofen [Lioresal] 10 mg PO TID PRN 02/05/17 Gabapentin [Neurontin] 300 mg PO TID 02/05/17 Metoclopramide [Reglan] 10 mg PO TID PRN 02/05/17 Omeprazole [Prilosec] 40 mg PO DAILY 02/05/17 Oxycodone HCl/Acetaminophen 1 tab PO TID PRN 02/05/17 [Percocet 10-325 mg Tablet] Amox/Clavulanate Tablet [Augmentin 875 mg PO Q12H #20 tab 08/23/20 Tablet] Fluticasone 0.05% [Flonase Nasal 2 spray NASAL DAILY 08/23/20 [place]] Prednisone 5 mg PO TID 08/23/20 Ustekinumab [Stelara] 90 mg SQ Q8 08/23/20 traZODone [Desyrel] 50 mg PO QHS PRN 08/25/20 - Social History Tobacco Use: non-smoker Vital Signs Temp Pulse Resp BP Pulse Ox 98.1 F 99 16 125/78 H 100 08/28/20 14:45 08/28/20 14:45 08/28/20 14:45 08/28/20 14:45 08/28/20 14:45 Oxygen Flow Rate (L/min) 2 Oxygen Delivery Method Room Air Weight: 97.182 kg Body Mass Index (BMI) 36.8 Microbiology Past 72 Hours 08/27/20 14:59 Gram Stain - Final Tissue - Face Wound Culture - Preliminary Mixed Gram Positive Organisms 08/25/20 16:45 Gram Stain - Final Bite - Aerobic & Anaerobic Swabs Wound Culture - Final [place] histolytica Staphylococcus epidermidis Pasteurella canis Anaerobic Culture - Preliminary Checking for anaerobes, further studies to follow. 08/25/20 09:19 Blood Culture - Preliminary Blood Culture (Wb) - Anticubital Left No growth in 48 hours. 08/25/20 09:19 Blood Culture - Preliminary Blood Culture (Wb) - Right Hand No growth in 48 hours. 08/27/20 13:30 SARS-CoV-2 Antigen (Rapid) - Final Mucosa - Nose Laboratory Tests Past 24 Hrs 08/28/20 08/28/20 08/28/20 06:35 06:35 06:35 WBC 5.3 RBC 3.17 L Hgb 9.1 L Hct 29.6 L MCV 93.4 MCH 28.7 MCHC 30.7 L D RDW Std Deviation 44.3 H RDW Coeff of Sergio 12.9 Plt Count 381 MPV 8.6 Immature Gran % (Auto) 0.400 Neut % (Auto) 64.0 Lymph % (Auto) 18.9 L [place] % (Auto) 8.9 Eos % (Auto) 7.2 H Baso % (Auto) 0.6 Absolute Neuts (auto) 3.4 Absolute Lymphs (auto) 1.00 Nucleated RBC % 0 Sodium 142 Potassium 3.5 Chloride 106 Carbon Dioxide 31.0 Anion Gap 5 BUN 5 L Creatinine 0.69 Estim Creat Clear Calc 90.78 Est GFR (MDRD) Af Amer 120 Est GFR (MDRD) Non-Af 99 BUN/Creatinine Ratio 7.3 L Glucose 98 Calcium 8.3 L Total Bilirubin 0.20 AST 27 ALT 35 Alkaline Phosphatase 201 H C-React Prot Ext Range 28.10 H Total Protein 6.5 Albumin 2.5 L Globulin 4.0 Albumin/Globulin Ratio 0.6 L Prealbumin 13.1 L Vancomycin Trough 13.9 - Other Studies Radiology: [] reviewed Other Studies: [] Route of nutrition/ use of supplements: [] Nutritional Intake: [] IV Site: [] [place]osta Catheter: [] - Physical Exam General: Alert, Oriented x3, Cooperative, No apparent distress HEENT: PERRLA, EOMI Neck: Supple, No Nodes Lungs: Clear to auscultation, Normal air movement Cardiovascular: Regular rate, Regular Rhythm Abdomen: Soft, Non Tender, Non-Distended Extremities: No edema Skin: Ulcer/ Wound - reviewed photos of R face wounds IV Site: PICC, without redness Musculoskeletal: No Tenderness to Palpation of Joints or Extremities Neurological: Cranial nerves II-XII grossly intact - Assessment/Plan Antibiotics: [] Assessment/Plan: [] Active and Suspected Problems Facial cellulitis (Acute) R facial abscess s/p dog bite/scratch - now s/p I&D in OR by Dr. Denney 08/27. Surg cx pending. Wound cx with yumiko steel, MSSE, and clostridium. Got tetanus shot in ED. Cont vanc/unasyn/fluc for now. Will follow, thank you, d/w wound nurse
[2020-08-28] MEDS: Zolpidem Tartrate 5 MG Tablet PO (22:49)
[2020-08-28 22:54] VITALS: BP 117/83; PULSE 88; RESP 16; TEMP 37.1; O2SAT 95
[2020-08-29 04:12] VITALS: BP 108/68; PULSE 72; RESP 16; TEMP 36.9; O2SAT 97
[2020-08-29] MEDS: Lactated Ringers 1,000 ML 100 ML IV (04:15)
[2020-08-29] MEDS: Gabapentin 300 MG Capsule PO ×2 (06:29→13:17)
[2020-08-29] MEDS: Baclofen 10 MG Tablet PO ×2 (06:29→13:17)
[2020-08-29] MEDS: Enoxaparin 40 MG/0.4 ML Syringe SC (06:29)
[2020-08-29] MEDS: oxyCODONE 5 MG Tablet PO ×2 (06:34→13:20)
[2020-08-29 07:16] LABS: Absolute Lymphocyte Count 0.94 X10^3/uL (0.83-4.51); Absolute Neutrophil Count 2.5 X10^3/uL (2.0-7.7); Basophil# 0.01 X10^3/uL; Basophil% 0.2 % (0-1); Eosinophil# 0.38 X10^3/uL; Eosinophils% 8.8 % (0-5); Hematocrit 33.1 % (37-47); Hemoglobin 10.4 g/dL (12.0-15.0); Lymphocyte # 0.94 X10^3/ul (4.0); Lymphocyte % 21.9 % (19-41); Mean Corp Hgb Conc 31.4 g/dL (32-36); Mean Corpuscular Hgb 29.5 pg (27.0-32.0); Mean Platelet Vol. 9.2 fl (6.2-12.0); Monocyte# 0.41 X10^3/uL; Monocyte% 9.5 % (0-10); NRBC Flagged by Analyzer 0 % (0-5); Neutrophil # 2.54 X10^3/uL (2.7-7.7); Neutrophil % 59.1 % (47-70); POSITIVE COUNT YES; Platelet Count 348 K/mm3 (150-450); RBC Distribution Width CV 12.8 % (11.6-14.6); RBC Distribution Width SD 43.7 fl (35.1-43.9); Red Blood Count 3.52 M/mm3 (4.2-5.4); White Blood Count 4.3 K/mm3 (4.4-11.0)
[2020-08-29 07:42] LABS: ALB/GLOB Ratio 0.6 RATIO (0.9-2.4); AST(SGOT) 13 U/L (15-37); Alanine Aminotransfer ALT/SGPT 27 U/L (13-56); Albumin, Serum 2.4 g/dL (3.2-5.0); Alkaline Phosphatase 154 U/L (45-117); Anion Gap 6 (5-15); BUN 6 mg/dL (7-18); BUN/Creat Ratio 8.4 RATIO (10-20); Calcium,Total 8.6 mg/dL (8.5-10.1); Chloride 108 mmol/L (98-107); Creatinine, Serum 0.71 mg/dL (0.55-1.02); EST Glomerular Filtration Rate 95 mL/min (>60); Est Glom Filt Rate - Afr Amer 115 mL/min (>60); Estimated Creatinine Clearance 88.22 ml/min; Globulin 4.2 g/dL (2.2-4.2); Glucose 89 mg/dL (74-106); Potassium 3.7 mmol/L (3.5-5.1); Protein, Total 6.6 g/dL (6.4-8.2); Sodium Level 140 mmol/L (136-145)
[2020-08-29 08:00] VITALS: BP 136/89; PULSE 78; RESP 18; TEMP 36.9; O2SAT 98
--- NOTE | 2020-08-29 08:29 | DCINST_ITS ---
- Discharge Diagnoses Current Active Problems: Current Active and Chronic Problems Open wound of face due to dog bite (Acute) Fibromyalgia (Chronic) History of Crohn's disease (Chronic) Facial cellulitis (Acute) You will use the following diet at home:: Regular, Other - Soft food, small bite and minced for ease of swallowing for 3 to 5 days Discharge Activity: May Not Drive - Until follows PCP or wound clinic for facial cellulitis and abscess Call your doctor if you observe: Fever of 101 or Higher, Coldness, Increased Pain, Numbness or Tingling, Change in Color, Inability to urinate, Inability to have a bowel movement, Using more than one pad per hour, Shortness of breath, Dizziness, Fainting spells, Swelling in the ankles, Chest pain, Prolonged hiccoughing, Increased palpitations (irregular heartbeat) Additional Instructions: Weekly CBC and BMP while the patient is on antibiotic and follow-up with Dr. Kauffman Allergies/Adverse Reactions: Allergies adhesive tape Allergy (Verified 08/25/20 12:30) Rash cetirizine [From Zyrtec] Allergy (Verified 08/25/20 12:30) Other Flushed hot face infliximab [From Remicade] Allergy (Verified 08/25/20 12:30) Anaphylaxis latex Allergy (Verified 08/25/20 12:30) Rash prochlorperazine [From Compazine] Allergy (Verified 08/25/20 12:30) Other BUGS CRAWL ALL OVER ME topiramate [From Topamax] Allergy (Verified 08/25/20 12:30) Other tongue and fingertips numb sumatriptan [From Imitrex] Adverse Reaction (Verified 08/25/20 12:30) Other TACHYCARDIA Medications to take at Discharge Anti-Diarrheal 4 tab PO DAILY 02/05/17 Baclofen [Lioresal] 10 mg PO TID PRN 02/05/17 Gabapentin [Neurontin] 300 mg PO TID 02/05/17 Omeprazole [Prilosec] 40 mg PO DAILY 02/05/17 Oxycodone HCl/Acetaminophen [Percocet 10-325 mg Tablet] 1 tab PO TID PRN 02/05/17 Fluticasone 0.05% [Flonase Nasal [place]] 2 spray NASAL DAILY 08/23/20 Ustekinumab [Stelara] 90 mg SQ Q8 08/23/20 traZODone [Desyrel] 50 mg PO QHS PRN 08/25/20 Amoxicillin/Potassium Clav [Augmentin 875-125 Tablet] 1 ea PO BID #14 tab 08/29/20 Metoclopramide [Reglan] 5 mg PO TID PRN #0 08/29/20 The following prescriptions were given: Amoxicillin/Potassium Clav [Augmentin 875-125 Tablet] 1 ea PO BID #14 tab Transmission Status: Received by [employer] [facility] Primary Care Physician: Martha Haro BIAS CUTTING MACHINE OPERATOR VERTICAL, BIAS CUTTING MACHINE OPERATOR VERTICAL-C [Primary Care Provider] - Please follow up with your Primary Care Physician in: In 1 to 2 weeks Test Results: Test results from this visit will be discussed in further detail at your follow- up appointment, if applicable. Please Follow Up With: Nehemiah Denney MD When: In wound clinic as scheduled Please Follow Up With: Harry Kauffman MD When: As needed for antibiotic issue
--- NOTE | 2020-08-29 08:32 | PCM.DC.SUM ---
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 #1 acute right facial cellulitis/multiple lacerations status post suturing due to dog bite: Antibiotic is updated. Patient was treated with on vancomycin and Unasyn. Rocephin and Flagyl discontinued. Tissue culture on 08/27 shows: Negative staph, alpha hemolytic Streptococcus and gram-positive cocci. Wound culture on 08/25 shows Staph epidermidis, Pasteurella canis and hathewaya histolytica. Discussed with the ID. CT sinus or face shows cellulitis on the right side but no abscess. Patient had excisional debridement after incision and drainage on 08/27. Patient had abscess in the right periauricular area, right cheek by lower eyelid and right medial cheek oral commissure. Right arm PICC line was ordered by Dr. Denney. ID discharged on 7 days of Augmentin. Follow-up nonsurgical wound clinic in 1 week. #2 Crohn's disease with history of colectomy: She has chronic diarrhea and chronic abdominal pain.She had colectomy and multiple surgeries for Crohn's disease, status post J-pouch. She has been on Stelara injections every 8 weeks. She is not on any long-term steroids. #3 fibromyalgia/arthritis: Continue baclofen, gabapentin. Patient has pain medication, Percocet at home. #4 DVT prophylaxis: Low risk patient, no prophylaxis indicated. Discharge medication reconciliation done. Discharge follow-up instructions completed. Discharge process discussed with the patient and all questions were answered to patient's satisfaction. Total time spent, exact 35 minutes on discharge meds reconciliation, examination, coordination of care with nurses and ancillary staff, review of imaging and blood test and discussion with the patient on follow-up instructions Patient Problems: Active and Suspected Problems Open wound of face due to dog bite (Acute) Facial cellulitis (Acute) Objective: No fever or chills. Facial swelling is much better. Swelling around right orbit has much improved. Physical exam General: Alert, Oriented x3, Cooperative HEENT: Edema and tenderness around right side of face and neck is much improved. Extraocular muscle intact. Oral: Hard tenderness on the buccal mucosal site on the right side. No purulent drainage on the oral side. Neck: No discrete lymph node palpable but may be matted cervical lymphadenopathy on the right side. No JVD, Negative Carotid Bruits Lungs: Air entry diminished in bilateral lung bases. No crepitation/rhonchi Cardiovascular: Regular rate, Regular Rhythm, Normal S1, Normal S2, No murmurs Abdomen: Bowel Sounds Present, Soft, Non Tender, Non-Distended. Surgical scar rlyey in abdomen. Status post colectomy : No renal angle tenderness. No suprapubic tenderness. Extremities: No edema, Capillary Refill Less than 3 Seconds Skin: Surgical drainage of the right cheek. Musculoskeletal: No Tenderness to Palpation of Joints or Extremities Neurological: Cranial nerves II-XII grossly intact, Deep Tendon Reflexes 2+/4 and Symmetrical, Neuro grossly intact Psych/Mental Status: Normal Affect, Appropriate. - Physical Exam Vitals/I&O's: Vital Signs Temp Pulse Resp BP Pulse Ox 98.4 F 72 16 108/68 97 08/29/20 04:12 08/29/20 04:12 08/29/20 04:12 08/29/20 04:12 08/29/20 04:12 Oxygen Flow Rate (L/min) 2 Oxygen Delivery Method Room Air Weight: 214 lb 3.994 oz Body Mass Index (BMI) 36.8 Intake and Output for Last 24 Hours 08/27/20 08/28/20 08/29/20 23:59 23:59 23:59 Intake Total 4353.50 / 4603.50 3411.67 / 3411.67 Output Total 2200 / 2200 Balance 4353.50 / 4103.50 1211.67 / 1211.67 Microbiology Past 72 Hours 12/15/20 14:59 Tissue - Face Gram Stain - Final 08/27/20 14:59 Tissue - Face Wound Culture - Preliminary Mixed Gram Positive Organisms 08/25/20 16:45 Bite - Aerobic & Anaerobic Swabs Gram Stain - Final 08/25/20 16:45 Bite - Aerobic & Anaerobic Swabs Wound Culture - Final Hathewaya histolytica Staphylococcus epidermidis Pasteurella canis 08/25/20 16:45 Bite - Aerobic & Anaerobic Swabs Anaerobic Culture - Preliminary Checking for anaerobes, further studies to follow. 08/25/20 09:19 Blood Culture (Wb) - Anticubital Left Blood Culture - Preliminary No growth in 48 hours. 08/25/20 09:19 Blood Culture (Wb) - Right Hand Blood Culture - Preliminary No growth in 48 hours. 08/27/20 13:30 Mucosa - Nose SARS-CoV-2 Antigen (Rapid) - Final Laboratory Results 08/29/20 06:58: WBC 4.3 L, RBC 3.52 L, Hgb 10.4 L, Hct 33.1 L, MCV 94.0, MCH 29.5, MCHC 31.4 L, RDW Std Deviation 43.7, RDW Coeff of Sergio 12.8, Plt Count 348, MPV 9.2, Immature Gran % (Auto) 0.500, Neut % (Auto) 59.1, Lymph % (Auto) 21.9, [place] % (Auto) 9.5, Eos % (Auto) 8.8 H, Baso % (Auto) 0.2, Absolute Neuts (auto) 2.5, Absolute Lymphs (auto) 0.94, Nucleated RBC % 0 08/29/20 06:58: Sodium 140, Potassium 3.7, Chloride 108 H, Carbon Dioxide 26.0, Anion Gap 6, BUN 6 L, Creatinine 0.71, Estim Creat Clear Calc 88.22, Est GFR (MDRD) Af Amer 115, Est GFR (MDRD) Non-Af 95, BUN/Creatinine Ratio 8.4 L, Glucose 89, Calcium 8.6, Total Bilirubin 0.20, AST 13 L, ALT 27, Alkaline Phosphatase 154 H, Total Protein 6.6, Albumin 2.4 L, Globulin 4.2, Albumin/Globulin Ratio 0.6 L Current Medications Acetaminophen (Acetaminophen 325 Mg Tablet) 650 mg PO Q6H PRN PRN PRN Reason: Pain Score 1-10/Temp > 100.7 F Last Admin: 08/28/20 22:49 Dose: 650 mg Documented by: Baclofen (Baclofen 10 Mg Tablet) 10 mg PO TID [facility] Last Admin: 08/29/20 06:29 Dose: 10 mg Documented by: Enoxaparin Sodium (Enoxaparin 40 Mg/0.4 Ml Syringe) 40 mg SC DAILY@0600 [facility] Last Admin: 08/29/20 06:29 Dose: 40 mg Documented by: Fluconazole (Fluconazole 100 Mg Tablet) 200 mg PO DAILY [facility] Last Admin: 08/28/20 08:49 Dose: 200 mg Documented by: Fluticasone Propionate (Fluticasone 0.05% 1 [place] Nasal.Sry) 2 spray NASAL DAILY [facility] Last Admin: 08/28/20 08:50 Dose: Not Given Documented by: Gabapentin (Gabapentin 300 Mg Capsule) 300 mg PO TID [facility] Last Admin: 08/29/20 06:29 Dose: 300 mg Documented by: Sodium Chloride () 250 mls @ 15 mls/hr IV .[id number] PRN PRN Reason: Saline Flush Last Infusion: 08/29/20 07:14 Dose: 15 mls/hr Documented by: Sodium Chloride () 250 mls @ 15 mls/hr IV .[id number] PRN PRN Reason: Additional IVPB Infusion Ampicillin Sodium/Sulbactam (Sodium 3 gm/ Sodium Chloride) 112 mls @ 150 mls/hr IV Q6 [facility] Last Infusion: 08/29/20 07:14 Dose: Infused Documented by: Vancomycin IV Pharmacy to Dose (1 ea/ Sodium Chloride) 500 mls @ 250 mls/hr IV X1 PRN; Protocol PRN Reason: Rx to Dose Vancomycin HCl 1,500 mg/ (Sodium Chloride) 530 mls @ 250 mls/hr IV Q12H [facility] Last Admin: 08/29/20 06:36 Dose: 250 mls/hr Documented by: Lactated Ringer's () 1,000 mls @ 100 mls/hr IV .Q10H [facility] Last Infusion: 08/29/20 06:36 Dose: 0 mls/hr Documented by: Metoclopramide HCl (Metoclopramide 10 Mg Tablet) 10 mg PO TID PRN PRN PRN Reason: NAUSEA Last Admin: 08/28/20 13:03 Dose: 10 mg Documented by: Morphine Sulfate (Morphine 2 Mg/Ml Syringe) 2 mg IV Q4H PRN PRN PRN Reason: Pain Score 6-10 Last Admin: 08/28/20 13:03 Dose: 2 mg Documented by: Nutritional Formula (Nutritional Supplement (Kane) Packet) 1 packet PO BIDCM [facility] Last Admin: 08/29/20 08:11 Dose: 1 packet Documented by: Ondansetron HCl (Ondansetron 4 Mg/2 Ml Vial) 4 mg IV Q8H PRN PRN PRN Reason: NAUSEA/VOMITING Last Admin: 08/28/20 10:42 Dose: 4 mg Documented by: Oxycodone HCl (Oxycodone 5 Mg Tablet) 5 mg PO Q4H PRN PRN PRN Reason: Pain Score 4-5 Last Admin: 08/29/20 06:34 Dose: 5 mg Documented by: Pantoprazole Sodium (Pantoprazole Sodium 40 Mg Tablet) 40 mg PO DAILY [facility] Last Admin: 08/28/20 08:50 Dose: 40 mg Documented by: Senna/Docusate Sodium (Senna/Docusate Sodium 1 Tablet) 2 tablet PO BID PRN PRN PRN Reason: Constipation Sodium Chloride (0.9% Saline Lock 10 Ml Syringe) 10 - 40 ml IV UD PRN PRN Reason: SALINE FLUSH Last Admin: 08/28/20 22:50 Dose: 20 ml Documented by: Zolpidem Tartrate (Zolpidem Tartrate 5 Mg Tablet) 5 mg PO QHS PRN PRN PRN Reason: INSOMNIA Last Admin: 08/28/20 22:49 Dose: 5 mg Documented by: Discharge Activity: May Not Drive - Until follows PCP or wound clinic for facial cellulitis and abscess Call your doctor if you observe: Fever of 101 or Higher, Coldness, Increased Pain, Numbness or Tingling, Change in Color, Inability to urinate, Inability to have a bowel movement, Using more than one pad per hour, Shortness of breath, Dizziness, Fainting spells, Swelling in the ankles, Chest pain, Prolonged hiccoughing, Increased palpitations (irregular heartbeat) Home Medications: Medications to take at Discharge Anti-Diarrheal 4 tab PO DAILY 02/05/17 Baclofen [Lioresal] 10 mg PO TID PRN 02/05/17 Gabapentin [Neurontin] 300 mg PO TID 02/05/17 Omeprazole [Prilosec] 40 mg PO DAILY 02/05/17 Oxycodone HCl/Acetaminophen [Percocet 10-325 mg Tablet] 1 tab PO TID PRN 02/05/17 Fluticasone 0.05% [Flonase Nasal [place]] 2 spray NASAL DAILY 08/23/20 Ustekinumab [Stelara] 90 mg SQ Q8 08/23/20 traZODone [Desyrel] 50 mg PO QHS PRN 08/25/20 Amoxicillin/Potassium Clav [Augmentin 875-125 Tablet] 1 ea PO BID #14 tab 08/29/20 Metoclopramide [Reglan] 5 mg PO TID PRN #0 08/29/20 Following Prescriptions Were Given to Patient: Amoxicillin/Potassium Clav [Augmentin 875-125 Tablet] 1 ea PO BID #14 tab Transmission Status: Received by [employer] #30 Primary Care Physician: Martha Haro CHILDHOOD TEACHER, CHILDHOOD TEACHER-C [Primary Care Provider] - Please follow up with your Primary Care Physician in: In 1 to 2 weeks Please Follow Up With: Nehemiah Denney MD When: In wound clinic as scheduled Please Follow Up With: Harry Kauffman MD When: As needed for antibiotic issue Medical Necessity - Tobacco Use Smoking Status: Never smoker Meaningful Use Info Meaningful Use Diagnoses (Choose all that apply): None applicable Inpatient E&M: [id number] [facility]
[2020-08-29] MEDS: Morphine 2 MG/ML Syringe IV (09:47)
[2020-08-29] MEDS: 0.9% Saline Lock 10 ML Syringe IV (09:47)
[2020-08-29] MEDS: Fluconazole 100 MG Tablet 200 MG PO (09:48)
[2020-08-29] MEDS: Pantoprazole Sodium 40 MG Tablet PO (09:48)
--- NOTE | 2020-08-29 11:08 | PCM.PN.ID ---
Patient Problems: Active and Suspected Problems Open wound of face due to dog bite (Acute) Facial cellulitis (Acute) Subjective: Feeling better, no fever, discharge home planned for today, no n/v/d - Physical Exam Vitals/I&O's: Vital Signs Temp Pulse Resp BP Pulse Ox 98.4 F 72 16 108/68 97 08/29/20 04:12 08/29/20 04:12 08/29/20 04:12 08/29/20 04:12 08/29/20 04:12 Oxygen Flow Rate (L/min) 2 Oxygen Delivery Method Room Air Weight: 97.182 kg Body Mass Index (BMI) 36.8 Intake and Output for Last 24 Hours 08/27/20 08/28/20 08/29/20 23:59 23:59 23:59 Intake Total 4353.50 / 4603.50 3411.67 / 3411.67 Output Total 2200 / 2200 Balance 4353.50 / 4103.50 1211.67 / 1211.67 General: Alert, Cooperative, No apparent distress Lungs: Clear to auscultation, Normal air movement Cardiovascular: Regular rate, Regular Rhythm Abdomen: Soft, Non Tender, Non-Distended Skin: Ulcer/ Wound - bandaged Microbiology Past 72 Hours 08/27/20 14:59 Tissue - Face Gram Stain - Final 08/27/20 14:59 Tissue - Face Wound Culture - Preliminary Mixed Gram Positive Organisms 08/25/20 16:45 Bite - Aerobic & Anaerobic Swabs Gram Stain - Final 08/25/20 16:45 Bite - Aerobic & Anaerobic Swabs Wound Culture - Final Hathewaya histolytica Staphylococcus epidermidis Pasteurella canis 08/25/20 16:45 Bite - Aerobic & Anaerobic Swabs Anaerobic Culture - Preliminary Checking for anaerobes, further studies to follow. 08/25/20 09:19 Blood Culture (Wb) - Anticubital Left Blood Culture - Preliminary No growth in 48 hours. 08/25/20 09:19 Blood Culture (Wb) - Right Hand Blood Culture - Preliminary No growth in 48 hours. 08/27/20 13:30 Mucosa - Nose SARS-CoV-2 Antigen (Rapid) - Final Laboratory Results 08/29/20 06:58: WBC 4.3 L, RBC 3.52 L, Hgb 10.4 L, Hct 33.1 L, MCV 94.0, MCH 29.5, MCHC 31.4 L, RDW Std Deviation 43.7, RDW Coeff of Sergio 12.8, Plt Count 348, MPV 9.2, Immature Gran % (Auto) 0.500, Neut % (Auto) 59.1, Lymph % (Auto) 21.9, [place] % (Auto) 9.5, Eos % (Auto) 8.8 H, Baso % (Auto) 0.2, Absolute Neuts (auto) 2.5, Absolute Lymphs (auto) 0.94, Nucleated RBC % 0 08/29/20 06:58: Sodium 140, Potassium 3.7, Chloride 108 H, Carbon Dioxide 26.0, Anion Gap 6, BUN 6 L, Creatinine 0.71, Estim Creat Clear Calc 88.22, Est GFR (MDRD) Af Amer 115, Est GFR (MDRD) Non-Af 95, BUN/Creatinine Ratio 8.4 L, Glucose 89, Calcium 8.6, Total Bilirubin 0.20, AST 13 L, ALT 27, Alkaline Phosphatase 154 H, Total Protein 6.6, Albumin 2.4 L, Globulin 4.2, Albumin/Globulin Ratio 0.6 L Current Medications Acetaminophen (Acetaminophen 325 Mg Tablet) 650 mg PO Q6H PRN PRN PRN Reason: Pain Score 1-10/Temp > 100.7 F Last Admin: 08/28/20 22:49 Dose: 650 mg Documented by: Baclofen (Baclofen 10 Mg Tablet) 10 mg PO TID [facility] Last Admin: 08/29/20 06:29 Dose: 10 mg Documented by: Enoxaparin Sodium (Enoxaparin 40 Mg/0.4 Ml Syringe) 40 mg SC DAILY@0600 [facility] Last Admin: 08/29/20 06:29 Dose: 40 mg Documented by: Fluconazole (Fluconazole 100 Mg Tablet) 200 mg PO DAILY [facility] Last Admin: 08/29/20 09:48 Dose: 200 mg Documented by: Fluticasone Propionate (Fluticasone 0.05% 1 [place] Nasal.Sry) 2 spray NASAL DAILY [facility] Last Admin: 08/28/20 08:50 Dose: Not Given Documented by: Gabapentin (Gabapentin 300 Mg Capsule) 300 mg PO TID [facility] Last Admin: 08/29/20 06:29 Dose: 300 mg Documented by: Heparin Sodium (Beef Lung) (Heparin Pf Lock 10 Units/Ml 50 Units/5 Ml Syringe) 50 units IV UD PRN PRN Reason: PICC Line Heparin Flush Sodium Chloride () 250 mls @ 15 mls/hr IV .[id number] PRN PRN Reason: Saline Flush Last Infusion: 08/29/20 07:14 Dose: 15 mls/hr Documented by: Sodium Chloride () 250 mls @ 15 mls/hr IV .[id number] PRN PRN Reason: Additional IVPB Infusion Ampicillin Sodium/Sulbactam (Sodium 3 gm/ Sodium Chloride) 112 mls @ 150 mls/hr IV Q6 [facility] Last Infusion: 08/29/20 07:14 Dose: Infused Documented by: Vancomycin IV Pharmacy to Dose (1 ea/ Sodium Chloride) 500 mls @ 250 mls/hr IV X1 PRN; Protocol PRN Reason: Rx to Dose Vancomycin HCl 1,500 mg/ (Sodium Chloride) 530 mls @ 250 mls/hr IV Q12H [facility] Last Admin: 08/29/20 06:36 Dose: 250 mls/hr Documented by: Lactated Ringer's () 1,000 mls @ 100 mls/hr IV .Q10H [facility] Last Infusion: 08/29/20 06:36 Dose: 0 mls/hr Documented by: Metoclopramide HCl (Metoclopramide 10 Mg Tablet) 10 mg PO TID PRN PRN PRN Reason: NAUSEA Last Admin: 08/28/20 13:03 Dose: 10 mg Documented by: Morphine Sulfate (Morphine 2 Mg/Ml Syringe) 2 mg IV Q4H PRN PRN PRN Reason: Pain Score 6-10 Last Admin: 08/29/20 09:47 Dose: 2 mg Documented by: Nutritional Formula (Nutritional Supplement (Kane) Packet) 1 packet PO BIDCM [facility] Last Admin: 08/29/20 08:11 Dose: 1 packet Documented by: Ondansetron HCl (Ondansetron 4 Mg/2 Ml Vial) 4 mg IV Q8H PRN PRN PRN Reason: NAUSEA/VOMITING Last Admin: 08/28/20 10:42 Dose: 4 mg Documented by: Oxycodone HCl (Oxycodone 5 Mg Tablet) 5 mg PO Q4H PRN PRN PRN Reason: Pain Score 4-5 Last Admin: 08/29/20 06:34 Dose: 5 mg Documented by: Pantoprazole Sodium (Pantoprazole Sodium 40 Mg Tablet) 40 mg PO DAILY [facility] Last Admin: 08/29/20 09:48 Dose: 40 mg Documented by: Senna/Docusate Sodium (Senna/Docusate Sodium 1 Tablet) 2 tablet PO BID PRN PRN PRN Reason: Constipation Sodium Chloride (0.9% Saline Lock 10 Ml Syringe) 10 - 40 ml IV UD PRN PRN Reason: SALINE FLUSH Last Admin: 08/29/20 09:47 Dose: 10 ml Documented by: Sodium Chloride (0.9% Saline Lock 10 Ml Syringe) 10 - 40 ml IV UD PRN PRN Reason: Open End PICC Flush Sodium Chloride (0.9 % Nacl (Sterile) Posiflush 10 Ml) 10 - 40 ml IV UD PRN PRN Reason: Port access or dressing change Zolpidem Tartrate (Zolpidem Tartrate 5 Mg Tablet) 5 mg PO QHS PRN PRN PRN Reason: INSOMNIA Last Admin: 08/28/20 22:49 Dose: 5 mg Documented by: Medical Necessity - Tobacco Use Smoking Status: Never smoker Route of nutrition/ use of supplements: [] Nutritional Intake: [] IV Site: [] [place] Catheter: [] - Assessment/Plan Antibiotics: [] Assessment/Plan: [] Active and Suspected Problems Facial cellulitis (Acute) R facial abscess s/p dog bite/scratch - now s/p I&D in OR by Dr. Denney 08/27. Surg cx with some GPC. Wound cx with pastereulla, hathewaya, MSSE, and clostridium. Got tetanus shot in ED. Ok for home with one week of augmentin, and followup next week with surgery. Will follow, d/w Dr. Bee
--- NOTE | 2020-08-29 12:00 | CASEMGMT ---
ANTHONY ARIZMENDI in to discuss discharge planning with patient. 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 Patient is to discharge on PO ATBs per ID. Patient currently has Picc Line. ANTHONY ARIZMENDI call and spoke with Dr. Denney and he states he would like patient to discharge with PICC line, he will follow-up with patient on Wednesday to see how patient's wounds look and determine if PICC line can be discontinued. ANTHONY ARIZMENDI called [facility] for potential IV ATB and Picc pipe line maintenance supervisor follow-up for Wednesday. ANTHONY ARIZMENDI also updated [facility] and sent initial intake information. Dr. Denney states he will follow-up with [facility] and [facility] if patient will need IV ATBs. ANTHONY ARIZMENDI updated the patient.
--- NOTE | 2020-08-29 15:59 | PN.SURG_ITS ---
Patient Problems: Active and Suspected Problems Open wound of face due to dog bite (Acute) Facial cellulitis (Acute) Subjective: Postop #2 Patient is resting comfortably. Tolerating the Silver dressing changes. - Physical Exam Vitals/I&O's: Vital Signs Temp Pulse Resp BP Pulse Ox 98.4 F 78 18 136/89 H 98 08/29/20 08:00 08/29/20 08:00 08/29/20 08:00 08/29/20 08:00 08/29/20 08:00 Oxygen Flow Rate (L/min) 2 Oxygen Delivery Method Room Air Weight: 214 lb 3.994 oz Body Mass Index (BMI) 36.8 Intake and Output for Last 24 Hours 08/27/20 08/28/20 08/29/20 23:59 23:59 23:59 Intake Total 4353.50 / 4603.50 3411.67 / 3411.67 4460.33 / 4460.33 Output Total 2200 / 2200 Balance 4353.50 / 4103.50 1211.67 / 1211.67 4460.33 / 4460.33 General: Alert, Oriented x3 HEENT: PERRLA, EOMI Oral: Moist Mucosa Neck: Supple Abdomen: Soft, Non-Distended Skin: Ulcer/ Wound - facial wounds are stable. No active bleeding noted. Less swelling noted. Tolerated Silver dressing change. Neurological: Cranial nerves II-XII grossly intact Psych/Mental Status: Normal Affect, Appropriate Microbiology Past 72 Hours 08/27/20 14:59 Tissue - Face Gram Stain - Final 08/27/20 14:59 Tissue - Face Wound Culture - Preliminary Coag Negative Staph Alpha Hemolytic Streptococcus Gram Positive Cocci 08/25/20 16:45 Bite - Aerobic & Anaerobic Swabs Gram Stain - Final 08/25/20 16:45 Bite - Aerobic & Anaerobic Swabs Wound Culture - Final Hathewaya histolytica Staphylococcus epidermidis Pasteurella canis 08/25/20 16:45 Bite - Aerobic & Anaerobic Swabs Anaerobic Culture - Preliminary Checking for anaerobes, further studies to follow. 08/25/20 09:19 Blood Culture (Wb) - Anticubital Left Blood Culture - Preliminary No growth in 48 hours. 08/25/20 09:19 Blood Culture (Wb) - Right Hand Blood Culture - Preliminary No growth in 48 hours. 08/27/20 13:30 Mucosa - Nose SARS-CoV-2 Antigen (Rapid) - Final Laboratory Results 08/29/20 06:58: WBC 4.3 L, RBC 3.52 L, Hgb 10.4 L, Hct 33.1 L, MCV 94.0, MCH 29.5, MCHC 31.4 L, RDW Std Deviation 43.7, RDW Coeff of Sergio 12.8, Plt Count 348, MPV 9.2, Immature Gran % (Auto) 0.500, Neut % (Auto) 59.1, Lymph % (Auto) 21.9, [place] % (Auto) 9.5, Eos % (Auto) 8.8 H, Baso % (Auto) 0.2, Absolute Neuts (auto) 2.5, Absolute Lymphs (auto) 0.94, Nucleated RBC % 0 08/29/20 06:58: Sodium 140, Potassium 3.7, Chloride 108 H, Carbon Dioxide 26.0, Anion Gap 6, BUN 6 L, Creatinine 0.71, Estim Creat Clear Calc 88.22, Est GFR (MDRD) Af Amer 115, Est GFR (MDRD) Non-Af 95, BUN/Creatinine Ratio 8.4 L, Glucose 89, Calcium 8.6, Total Bilirubin 0.20, AST 13 L, ALT 27, Alkaline Phosphatase 154 H, Total Protein 6.6, Albumin 2.4 L, Globulin 4.2, Albumin/Globulin Ratio 0.6 L Current Medications Acetaminophen (Acetaminophen 325 Mg Tablet) 650 mg PO Q6H PRN PRN PRN Reason: Pain Score 1-10/Temp > 100.7 F Last Admin: 08/28/20 22:49 Dose: 650 mg Documented by: Baclofen (Baclofen 10 Mg Tablet) 10 mg PO TID [facility] Last Admin: 08/29/20 13:17 Dose: 10 mg Documented by: Enoxaparin Sodium (Enoxaparin 40 Mg/0.4 Ml Syringe) 40 mg SC DAILY@0600 [facility] Last Admin: 08/29/20 06:29 Dose: 40 mg Documented by: Fluconazole (Fluconazole 100 Mg Tablet) 200 mg PO DAILY [facility] Last Admin: 08/29/20 09:48 Dose: 200 mg Documented by: Fluticasone Propionate (Fluticasone 0.05% 1 [place] Nasal.Sry) 2 spray NASAL DAILY [facility] Last Admin: 08/29/20 11:17 Dose: Not Given Documented by: Gabapentin (Gabapentin 300 Mg Capsule) 300 mg PO TID [facility] Last Admin: 08/29/20 13:17 Dose: 300 mg Documented by: Heparin Sodium (Beef Lung) (Heparin Pf Lock 10 Units/Ml 50 Units/5 Ml Syringe) 50 units IV UD PRN PRN Reason: PICC Line Heparin Flush Sodium Chloride () 250 mls @ 15 mls/hr IV .[id number] PRN PRN Reason: Saline Flush Last Infusion: 08/29/20 07:14 Dose: 15 mls/hr Documented by: Sodium Chloride () 250 mls @ 15 mls/hr IV .[id number] PRN PRN Reason: Additional IVPB Infusion Ampicillin Sodium/Sulbactam (Sodium 3 gm/ Sodium Chloride) 112 mls @ 150 mls/hr IV Q6 [facility] Last Infusion: 08/29/20 14:00 Dose: Infused Documented by: Vancomycin IV Pharmacy to Dose (1 ea/ Sodium Chloride) 500 mls @ 250 mls/hr IV X1 PRN; Protocol PRN Reason: Rx to Dose Vancomycin HCl 1,500 mg/ (Sodium Chloride) 530 mls @ 250 mls/hr IV Q12H [facility] Last Infusion: 08/29/20 08:45 Dose: Infused Documented by: Lactated Ringer's () 1,000 mls @ 100 mls/hr IV .Q10H [facility] Last Infusion: 08/29/20 14:15 Dose: 100 mls/hr Documented by: Metoclopramide HCl (Metoclopramide 10 Mg Tablet) 10 mg PO TID PRN PRN PRN Reason: NAUSEA Last Admin: 08/28/20 13:03 Dose: 10 mg Documented by: Morphine Sulfate (Morphine 2 Mg/Ml Syringe) 2 mg IV Q4H PRN PRN PRN Reason: Pain Score 6-10 Last Admin: 08/29/20 09:47 Dose: 2 mg Documented by: Nutritional Formula (Nutritional Supplement (Kane) Packet) 1 packet PO BIDCM [facility] Last Admin: 08/29/20 08:11 Dose: 1 packet Documented by: Ondansetron HCl (Ondansetron 4 Mg/2 Ml Vial) 4 mg IV Q8H PRN PRN PRN Reason: NAUSEA/VOMITING Last Admin: 08/28/20 10:42 Dose: 4 mg Documented by: Oxycodone HCl (Oxycodone 5 Mg Tablet) 5 mg PO Q4H PRN PRN PRN Reason: Pain Score 4-5 Last Admin: 08/29/20 13:20 Dose: 5 mg Documented by: Pantoprazole Sodium (Pantoprazole Sodium 40 Mg Tablet) 40 mg PO DAILY [facility] Last Admin: 08/29/20 09:48 Dose: 40 mg Documented by: Senna/Docusate Sodium (Senna/Docusate Sodium 1 Tablet) 2 tablet PO BID PRN PRN PRN Reason: Constipation Sodium Chloride (0.9% Saline Lock 10 Ml Syringe) 10 - 40 ml IV UD PRN PRN Reason: SALINE FLUSH Last Admin: 08/29/20 09:47 Dose: 10 ml Documented by: Sodium Chloride (0.9% Saline Lock 10 Ml Syringe) 10 - 40 ml IV UD PRN PRN Reason: Open End PICC Flush Sodium Chloride (0.9 % Nacl (Sterile) Posiflush 10 Ml) 10 - 40 ml IV UD PRN PRN Reason: Port access or dressing change Zolpidem Tartrate (Zolpidem Tartrate 5 Mg Tablet) 5 mg PO QHS PRN PRN PRN Reason: INSOMNIA Last Admin: 08/28/20 22:49 Dose: 5 mg Documented by: Medical Necessity - Tobacco Use Smoking Status: Never smoker Assessment/Plan All Active Problems Abscess of face (Acute) Open wound of face due to dog bite (Acute) Dog bite (Acute) Facial cellulitis (Acute) 1. Right facial cellulitis from multiple dog bites wound infection abscesses (right preauricular area by helical root, right cheek by lower eyelid, and right medial cheek by oral commissure). 2. Crohn's disease on Stelara (Ustekinumab) and Prednisone. 3. s/p surgical preparation right face with incision and drainage and excisional debridement multiple dog bites wound infection abscesses (right preauricular area by helical root, right cheek by lower eyelid, and right medial cheek by oral commissure). Continue Vancomycin and Unasyn. Operative cultures show Coag negative Staph, Alpha hemolytic Streptococcus, and Gram positive cocci. Preop cultures showed Pasteurella canis, Staphylococcus epidermidis, Hathewaya histolytica, Bacteroides uniformis, and Fusobacterium nucleatum. Continue head elevation. Facial wounds are stable. No active bleeding seen. Less swelling noted. Redressed with Aquacel Silver. She tolerated it well. After healing has occurred, can discuss the need for complex secondary wound closure with possible skin flaps of complex scar revisions if there are any scar contour deformities present. She is immunocompromised from her Crohn's disease and being on Prednisone and Stelara (Ustekinumab) increases risk of suboptimal healing. A PICC line was placed in anticipation of possible IV antibiotics. Infectious Diseases recommended treating after discharge with Augmentin. Will leave the PICC line until she is seen in the office on 09/02/20. If the wounds continue to improve, will pull the PICC line at that time. Patient feels comfortable doing her own Silver dressing changes at this time. She is being discharged home today. Will followup to see me on Wednesday09/02/20. Wrote a script for Percocet for pain (40 tabs). Prealbumin from 08/28/20 was 13.1. Encourage nutritional supplementation with protein to help the healing process.
[2020-08-29 16:41] VITALS: BP 138/68; PULSE 74; RESP 18; TEMP 37.2; O2SAT 98
== END 2020-08-29 16:41 | disposition home or self-care (01) | DRG 571 ==
LOC: ED 11:05 → MS3 11:48
PROVIDERS: Surgery; Admitting Provider Hospitalist; Emergency Provider Emergency Medicine; PCP Nurse Practitioner Family; Visit Provider Internal Medicine
PROC: 0JB10ZZ Excision of Face Subcutaneous Tissue and Fascia, Open Approach (ICD-10-PCS; principal; 2020-08-27 13:50)
DX: L03.211 Cellulitis of face (principal); L02.01 Cutaneous abscess of face; K50.90 Crohn's disease, unspecified, without complications; D84.9 Immunodeficiency, unspecified; B95.7 Other staphylococcus as the cause of diseases classified elsewhere; S01.85XA Open bite of other part of head, initial encounter; B96.89 Other specified bacterial agents as the cause of diseases classified elsewhere; Z79.52 Long term (current) use of systemic steroids; W54.0XXA Bitten by dog, initial encounter; M79.7 Fibromyalgia; M19.90 Unspecified osteoarthritis, unspecified site; Z79.899 Other long term (current) drug therapy; Z90.49 Acquired absence of other specified parts of digestive tract
CPT/HCPCS: 36415; 36569; 70487; 80048; 80053; 80202; 81001; 83605; 84134; 84703; 85025; 86140; 87040; 87070; 87075; 87077; 87102; 87186; 87205; 87206; 87426; 87641; 99284; 99406; J7030; J7040; J7050; J7120; Q9967; A4216; J0295; J2405

== ENCOUNTER 2021-05-08 10:10 | Emergency (ER) | payer BC, SELFPAY ==
[2021-05-08 10:12] VITALS: BP 138/104; PULSE 96; RESP 16; TEMP 35.8; O2SAT 100; BMI 35.2
[2021-05-08 11:25] LABS: Absolute Lymphocyte Count 1.71 X10^3/uL (0.83-4.51); Absolute Neutrophil Count 4.7 X10^3/uL (2.0-7.7); Basophil# 0.05 X10^3/uL; Basophil% 0.7 % (0-1); Eosinophil# 0.31 X10^3/uL; Eosinophils% 4.2 % (0-5); Hematocrit 37.1 % (37-47); Hemoglobin 11.6 g/dL (12.0-15.0); Lymphocyte # 1.71 X10^3/ul (0.83-4.51); Mean Corp Hgb Conc 31.3 g/dL (32-36); Mean Corpuscular Hgb 27.2 pg (27.0-32.0); Mean Corpuscular Volume 87.1 fL (81-99); Mean Platelet Vol. 9.2 fl (6.2-12.0); Monocyte# 0.65 X10^3/uL; Monocyte% 8.7 % (0-10); NRBC Flagged by Analyzer 0 % (0-5); Neutrophil # 4.69 X10^3/uL (2.7-7.7); Platelet Count 371 K/mm3 (150-450); RBC Distribution Width CV 14.9 % (11.6-14.6); RBC Distribution Width SD 47.7 fl (35.1-43.9); Red Blood Count 4.26 M/mm3 (4.2-5.4); White Blood Count 7.4 K/mm3 (4.4-11.0)
[2021-05-08] MEDS: 0.9% Normal Saline 1,000 ML 1000 ML IV (11:25)
--- NOTE | 2021-05-08 11:26 | EX.ED.DYSGE1 ---
HPI History of Present Illness Chief Complaint: Fatigue Informant: patient Narrative Narrative: Patient is a 46-year-old female with a past medical history of Crohn's disease, fibromyalgia who presents to the emergency department for feeling dehydrated. She states that she gets dizzy upon standing. This has been going on over the past 2 to 3 weeks. She has had this many times before in the past. She states that she does have daily diarrhea secondary to her Crohn's. She does have some intermittent blood. She denies any abdominal pain or nausea/vomiting. No fevers or chills. No chest pain, shortness of breath. Occasionally she will feel her heart racing but denies this now. She has required transfusions before in the past but it has been multiple years since her last. She is not currently taking any medication for her Crohn's disease as she had a dog bite and they were waiting for that to heal and she never followed up. [facility] Medical History Abscess of face Dog bite Fibromyalgia History of Crohn's disease Hypertrophic scar shelter current use of systemic steroids Long-term current use of ustekinumab Migraine Open bite of other part of head, sequela Open wound of face due to dog bite Home Medications Anti-Diarrheal 4 tab PO DAILY 02/05/17 [History Last Taken Unknown] baclofen 10 mg PO TID PRN 02/05/17 [History Last Taken Unknown] gabapentin 300 mg PO TID 02/05/17 [History Last Taken Unknown] omeprazole 40 mg PO DAILY 02/05/17 [History Last Taken Unknown] oxycodone-acetaminophen 1 tab PO TID PRN 02/05/17 [History Last Taken Unknown] fluticasone propionate 2 spray NASAL DAILY 08/23/20 [History Last Taken Unknown] ustekinumab 90 mg SQ Q8 08/23/20 [History Last Taken Unknown] trazodone 50 mg PO QHS PRN 08/25/20 [History Last Taken Unknown] metoclopramide HCl 5 mg PO TID PRN #0 08/29/20 [Rx Last Taken Unknown] fluconazole 200 mg tablet 400 mg PO DAILY 30 Days #60 tab 09/11/20 [Rx Last Taken Unknown] trazodone 50 mg tablet See Rx Instructions PO QHS #60 tab 02/12/21 [Rx Last Taken Unknown] Allergy/AdvReac Type Severity Reaction Status Date / Time adhesive tape Allergy Rash Verified 05/08/21 10:11 cetirizine [From Zyrtec] Allergy Other Verified 05/08/21 10:11 infliximab [From Remicade] Allergy Anaphylaxis Verified 05/08/21 10:11 latex Allergy Rash Verified 05/08/21 10:11 prochlorperazine Allergy Other Verified 05/08/21 10:11 [From Compazine] topiramate [From Topamax] Allergy Other Verified 05/08/21 10:11 sumatriptan [From Imitrex] AdvReac Other Verified 05/08/21 10:11 Surgical History History of drainage of abscess Social History Smoking Status: Never smoker ROS ROS ED Constitutional Constitutional ED: Denies chills or fever(s) Eyes Eyes: Denies change in vision ENT ENT ED: Denies epistaxis or rhinorrhea Cardiovascular Cardiovascular: Denies chest pain or palpitations Respiratory/Chest Respiratory/Chest: Denies cough, dyspnea or dyspnea on exertion Gastrointestinal Gastrointestinal: Denies abdominal pain, diarrhea, nausea or vomiting Genitourinary Genitourinary ED: Denies dysuria, hematuria or urinary frequency Musculoskeletal Musculoskeletal: Denies back pain or neck pain Integumentary Denies rash Neurologic Neurologic: Reports weakness; Denies dizziness or headache(s) EXAM Physical Exam Const Vital Signs: 05/08/21 10:12 05/08/21 11:11 05/08/21 12:37 Temperature 96.5 F L Temperature Source Temporal Pulse Rate 96 76 Respiratory Rate 16 16 Respiratory Effort Normal Non-Labored Respiratory Pattern Normal Blood Pressure 138/104 H 124/76 H Blood Pressure Mean 115 92 Pulse Ox 100 100 Oxygen Delivery Method Room Air Room Air 05/08/21 13:16 Temperature Temperature Source Pulse Rate 82 Respiratory Rate 16 Respiratory Effort Respiratory Pattern Blood Pressure 123/75 H Blood Pressure Mean Pulse Ox 98 Oxygen Delivery Method Positive well nourished and well developed General Appearance ED: well developed and NAD HEENT Reports normocephalic, head/scalp atraumatic and moist mucous membranes Eyes PERRL and EOMs intact bilaterally Neck supple General: Negative for tenderness Chest Wall inspection of chest normal Resp normal respiratory effort and clear to auscultation bilaterally Auscultation: Negative for rales, rhonchi or wheezes Cardio regular rate, regular rhythm and no murmurs GI normal to inspection, nondistended, normoactive bowel sounds and non-tender Palpation: soft; Negative for guarding or rebound tenderness present Extremity normal to inspection General Extremety ED: Negative for edema or tenderness General Extremity: Negative for edema Neuro Sensorium / Orientation: alert Motor Exam: strength 5/5 throughout Psych mental status grossly normal Skin no rashes or lesions noted MDM MDM MDM Narrative Medical decision making narrative: Patient presents to the emergency department for feeling dehydrated. She has had orthostatic hypotension symptoms at home. On arrival to the ED vital signs within normal limits. She is in no acute distress. She states she has had this happen many times before in the past. Will check basic lab work and start IV fluids for symptomatic treatment. Patient's lab work showed mild anemia at 11.6 but this is improved from her previous lab draws. No other significant acute abnormality. Patient is feeling much better after IV fluids. She does want to be discharged home. She needs to follow-up with her PCP as soon as possible to get restarted on her Crohn's medications. Return precautions are reviewed with her. She is discharged home in stable condition. All questions are answered. Lab Data Labs: Laboratory Results - last 24 hr 05/08/21 05/08/21 11:08 11:08 WBC 7.4 RBC 4.26 Hgb 11.6 L Hct 37.1 MCV 87.1 MCH 27.2 MCHC 31.3 L RDW Std Deviation 47.7 H RDW Coeff of Sergio 14.9 H Plt Count 371 MPV 9.2 Immature Gran % (Auto) 0.400 Neut % (Auto) 63.0 Lymph % (Auto) 23.0 [place] % (Auto) 8.7 Eos % (Auto) 4.2 Baso % (Auto) 0.7 Absolute Neuts (auto) 4.7 Absolute Lymphs (auto) 1.71 Nucleated RBC % 0 Sodium 140 Potassium 3.8 Chloride 107 Carbon Dioxide 29.0 Anion Gap 4 L BUN 12 Creatinine 0.83 Estim Creat Clear Calc 74.69 Est GFR (MDRD) Af Amer 96 Est GFR (MDRD) Non-Af 80 BUN/Creatinine Ratio 14.5 Glucose 85 Calcium 8.9 Total Bilirubin 0.30 AST 20 ALT 34 Alkaline Phosphatase 107 Total Protein 7.4 Albumin 3.3 Globulin 4.1 Albumin/Globulin Ratio 0.8 L Discharge Plan Triage Chief Complaint: Fatigue ED Provider: Moisés Perdomo Dx/Rx/DC Orders Clinical Impression: Dehydration Instructions: ED Dehydration (Adult) Prescriptions: No Action Anti-Diarrheal 4 TAB 4 tab PO DAILY RF: 0 omeprazole 40 MG capsule 40 mg PO DAILY RF: 0 oxycodone-acetaminophen 1 EACH tablet 1 tab PO TID PRN (Reason: Pain Score 1-10) RF: 0 baclofen 10 MG tablet 10 mg PO TID PRN (Reason: Pain 1-10 Or Fever) RF: 0 gabapentin 300 MG capsule 300 mg PO TID RF: 0 fluticasone propionate 1 SPRAY spray,suspension 2 spray NASAL DAILY RF: 0 ustekinumab 90 MG/ML syringe 90 mg SQ Q8 RF: 0 trazodone 50 MG tablet 50 mg PO QHS PRN (Reason: Insomnia) RF: 0 metoclopramide HCl 10 MG tablet 5 mg PO TID PRN (Reason: Nausea) Qty: 0 RF: 0 fluconazole [Diflucan] 200 mg tablet 400 mg PO DAILY 30 Days Qty: 60 RF: 1 trazodone 50 mg tablet See Rx Instructions PO QHS Qty: 60 RF: 2 Primary Care Provider: Martha Haro NP Referrals: Martha Haro NP, [employer] [Primary Care Provider] - As soon as possible Disposition Disposition: Home, Self Care Discharge Date/Time: 05/08/21 13:19
[2021-05-08 11:38] LABS: ALB/GLOB Ratio 0.8 RATIO (0.9-2.4); AST(SGOT) 20 U/L (15-37); Alanine Aminotransfer ALT/SGPT 34 U/L (13-56); Albumin, Serum 3.3 g/dL (3.2-5.0); Alkaline Phosphatase 107 U/L (45-117); Anion Gap 4 (5-15); BUN 12 mg/dL (7-18); BUN/Creat Ratio 14.5 RATIO (10-20); Calcium,Total 8.9 mg/dL (8.5-10.1); Chloride 107 mmol/L (98-107); Creatinine, Serum 0.83 mg/dL (0.55-1.02); EST Glomerular Filtration Rate 80 mL/min (>60); Est Glom Filt Rate - Afr Amer 96 mL/min (>60); Estimated Creatinine Clearance 74.69 ml/min; Globulin 4.1 g/dL (2.2-4.2); Glucose 85 mg/dL (74-106); Potassium 3.8 mmol/L (3.5-5.1); Protein, Total 7.4 g/dL (6.4-8.2); Sodium Level 140 mmol/L (136-145)
[2021-05-08 12:37] VITALS: BP 124/76; PULSE 76; RESP 16; O2SAT 100
[2021-05-08 13:16] VITALS: BP 123/75; PULSE 82; RESP 16; O2SAT 98
--- NOTE | 2021-05-08 13:16 | ED.RN ---
THIS NURSE REVIEWED D/C INSTRUCTIONS WITH PT. PT VERBALIZED UNDERSTANDING OF INSTRUCTIONS. IV D/C. IV CATHETER INTACT. PT TOLERATED WELL. PT DENIES FURTHER NEEDS OR QUESTIONS AT THIS TIME
== END 2021-05-08 13:19 | disposition home or self-care (01) ==
PROVIDERS: Emergency Provider Emergency Medicine; PCP Nurse Practitioner Family
DX: E86.0 Dehydration (principal); M79.7 Fibromyalgia; K50.90 Crohn's disease, unspecified, without complications; G43.909 Migraine, unspecified, not intractable, without status migrainosus; Z79.52 Long term (current) use of systemic steroids; Z79.899 Other long term (current) drug therapy
CPT/HCPCS: 80053; 85025; 96360; 96361; 99283; J7030; A4216

== ENCOUNTER 2021-08-04 07:02 | Day surgery (SDC) | payer BC, SELFPAY ==
[2021-07-29 17:08] LABS: Partial Thromboplast Time 29.5 Seconds (24.1-36.2); Prothrombin Time (Protime)PT. 12.5 SECONDS (11.7-14.9)
[2021-07-29 17:10] LABS: Hematocrit 37.2 % (37-47); Hemoglobin 11.9 g/dL (12.0-15.0); Mean Corpuscular Hgb 28.1 pg (27.0-32.0); Mean Corpuscular Volume 87.7 fL (81-99); Mean Platelet Vol. 9.2 fl (6.2-12.0); Platelet Count 410 K/mm3 (150-450); RBC Distribution Width CV 13.4 % (11.6-14.6); RBC Distribution Width SD 42.9 fl (35.1-43.9); Red Blood Count 4.24 M/mm3 (4.2-5.4); White Blood Count 6.3 K/mm3 (4.4-11.0)
[2021-07-29 17:39] LABS: AST(SGOT) 19 U/L (15-37); Alanine Aminotransfer ALT/SGPT 33 U/L (13-56); Albumin, Serum 3.3 g/dL (3.2-5.0); Alkaline Phosphatase 113 U/L (45-117); Bilirubin, Direct 0.08 mg/dL (0.00-0.30); Globulin 4.5 g/dL (2.2-4.2); Protein, Total 7.8 g/dL (6.4-8.2)
--- NOTE | 2021-08-03 23:53 | HP.PCM_ITS ---
History and Physical Date of Admission: 08/04/21 HISTORY OF PRESENT ILLNESS The patient is a 46 year old F with past medical history of Crohn's disease and on Stelara (Ustekinumab) and Prednisone sustained complex dog bite wounds to the right side of her face (right preauricular area by helical root, right cheek near lower eyelid, and right medial cheek by oral commissure) om 08/23/20. It was a family dog. She went to the ED where the dog bite wounds were cleansed and suture repaired with single layer of Nylon sutures. She was discharged on Augmentin. Over the next couple of days she developed worsening pain and redness and swelling around the dog bite incisions which prompted a return visit to the ED on 08/25/20. She was admitted to the hospital and was started on Ceftriaxone and Flagyl. CT Face was done which showed cellulitis in the right side of the face but no abscess. She underwent surgery on 08/27/20 where she underwent surgical preparation right face with incision and drainage and excisional debridement multiple dog bites wound infection abscesses (right preauricular area by helical root, right cheek by lower eyelid, and right medial cheek by oral commissure). At the present time her wounds are healed. She completed laser treatments to improve the painful symptomatology, which helped with the burning pain on the right cheek by lower eyelid scar. The redness and some of the scar thickening have also improved after the laser treatments. She comes in today for further evaluation and treatment. PAST MEDICAL HISTORY [facility] current use of systemic steroids (Chronic) Long-term current use of ustekinumab (Chronic) Fibromyalgia (Chronic) History of Crohn's disease (Chronic) Dog bite wound infection abscess right preauricular area by helical root, healed. Dog bite wound infection abscess right cheek by lower eyelid, healed. Dog bite wound infection abscess right medial cheek by oral commissure, healed with some pincushioning scar contour deformity. PAST SURGICAL HISTORY History of drainage of abscess ALLERGIES adhesive tape cetirizine [From Zyrtec] infliximab [From Remicade] latex prochlorperazine [From Compazine] topiramate [From Topamax] sumatriptan [From Imitrex] MEDICATIONS Anti-Diarrheal 4 tab PO DAILY 02/05/17 [History Confirmed 07/10/21] baclofen 10 mg PO TID PRN 02/05/17 [History Confirmed 07/10/21] gabapentin 300 mg PO TID 02/05/17 [History Confirmed 07/10/21] omeprazole 40 mg PO DAILY 02/05/17 [History Confirmed 07/10/21] oxycodone-acetaminophen 1 tab PO TID PRN 02/05/17 [History Confirmed 07/10/21] fluticasone propionate 2 spray NASAL DAILY 08/23/20 [History Confirmed 07/10/21] ustekinumab 90 mg SQ Q8 08/23/20 [History Confirmed 07/10/21] trazodone 50 mg PO QHS PRN 08/25/20 [History Confirmed 07/10/21] metoclopramide HCl 5 mg PO TID PRN #0 08/29/20 [Rx Confirmed 07/10/21] fluconazole 200 mg tablet 400 mg PO DAILY 30 Days #60 tab 09/11/20 [Rx Confirmed 07/10/21] trazodone 50 mg tablet See Rx Instructions PO QHS #60 tab 02/12/21 [Rx Confirmed 07/10/21] FAMILY HISTORY No pertinent family history. SOCIAL HISTORY Smoking Status: Never smoker REVIEW OF SYSTEMS General - Patient has fatigue. Eyes - Denies cataracts and glaucoma. No issues with her vision. ENT - Denies nasal congestion and sore throat. She had a dog bite wound right preauricular area by helical root, right cheek by lower eyelid and the right medial cheek by oral commissure. Endocrine - Denies excessive thirst and urination. Skin - Denies suspicious lesions and skin cancer. Musculoskeletal - Denies joint pain, joint stiffness, weakness of muscles and joints, back pain, and arthritis. Neuro - Denies headaches. Cardiovascular - Denies chest pain, fatigue, and shortness of breath with exertion. Psych - Denies anxiety and depression. Respiratory - Denies chronic cough and shortness of breath. Gastrointestinal - She has a history of Crohn's disease and on Stelara (Ustekinumab) and Prednisone. She is complaining of nausea and vomiting today, which she thinks is caused from her antibiotics. Hematologic - Denies abnormal bruising and bleeding. Genitourinary - Denies hematuria and urinary frequency. PHYSICAL EXAMINATION General - Alert and oriented. HEENT - PERRL. EOMI. The facial dog bite wounds are healed. Facial swelling is resolved. No further evidence of infection at this time. The dog bite wound right preauricular area by helical root, the dog bite wound right cheek by lower eyelid, and the dog bite wound right medial cheek by oral commissure are all healed. Less firmness noted. The scar right preauricular area by helical root is flat with a small nodularity inferiorly and mildly red. Good contour noted. The scar is nontender except for the small nodularity which is tender to palpation. The scar right medial cheek by oral commissure is healed but there is some pincushioning present from the semicircular nature of the scar. It is nontender. When she smiles, the scar blends into her dimples. She smiles symmetrically. The scar right cheek by lower eyelid had some thickening and erythema, but both have improved with the laser treatments. The residual discomfort and burning pain have also resolved since receiving the laser treatments. Neck - Supple and non-tender. No cervical adenopathy. Lungs- Clear to auscultation. Heart - Regular rate and rhythm. Abdomen - Soft and non distended. Extremities - FROM. No axillary adenopathy. Radial pulses are palpable. Neuro - CN II-XII grossly intact. Psych - Normal mood and affect. ASSESSMENT 1. Dog bite wound infection abscess right preauricular area by helical root, healed with a small area of redness and thickening and discomfort inferiorly. 2. Dog bite wound infection abscess right cheek by lower eyelid, healed with some redness and thickening and discomfort. 3. Dog bite wound infection abscess right medial cheek by oral commissure, healed with some pincushioning scar contour deformity. 4. History of Crohn's disease. 5. Long-term current use of ustekinumab. 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 PLAN Her dog bite wounds are healed with some scar contour deformity. There is less firmness noted. Some indentation noted mostly on the right medial cheek by oral commissure scar. She should continue bimanual massage at least once daily to help soften scarring and to help with lymphatic drainage on the right medial cheek by the oral commissure. Massage the right preauricular area by helical root and right cheek by lower eyelid with lotion daily to help soften scarring and to also help with lymphatic drainage. Her swelling has resolved. The scar right preauricular area by helical root has a small nodularity inferiorly that is pink in color. Nontender. The scar right medial cheek by the oral commissure is semicircular in nature and some pincushioning has developed. The scar blends into her dimple when she smiles. She will need excision of the semicircular scar to break up the pincushioning. Reconstruction would be with multiple W-plasty to help flatten out the pincushioning scar contour deformity. The scar right cheek by lower eyelid had slight thickening, erythema and sensitivity to touch, which have improved from the laser treatments. She benefited from multiple laser treatments using the combination of the IPL device and the ResurFX laser (1565 nm) alternating every 3 weeks. She states that where she works, there is access to this combination of the IPL device and the ResurFX laser (1565 nm). She completed these laser treatments there because of logistical convenience. Her preoperative wound cultures showed Staphylococcus epidermidis, Pasteurella canis, Hathawaya histolytica, and Bacteroides uniformis. The operative wound cultures showed Streptococcus sanguinis and Staphylococcus epidermidis x2 and Clostridium group. Her fungal culture came back as Rosalinda dubliniensis. She was placed on Augmentin and Diflucan and Flagyl and has finished them. LFT's from 09/19/20 and 10/18/20 were normal while she was taking Diflucan. The Neurontin has been helpful. She was taking 300mg at a time. It is ok to take 600mg at night. Also to help with sleep she can increase the Trazodone. She will try that later on if necessary. She spoke to her PCP about Stelara and Prednisone for her Crohn's. Her Crohn's is stable and is temporarily off the Stelara at this time. She also only has to take the Prednisone on an as needed basis. She is back to work and doing ok. It was recommended to the patient to use sunscreen when outside to help minimize darkening of the healing scars. Patient is interested in scar revision reconstruction for the pincushioning effect indentation scar contour deformity that would need multiple W-plasty. The multiple W-plasty procedure would be done under general anesthesia on an outpatient basis. A culture will be obtained at the time of surgery to make sure there is no further infection. A positive culture will necessitate antibiotic therapy. Patient was informed of the risks and complications of the procedure including alternatives to surgery. These were discussed with the patient personally. Patient voices understanding and wishes to proceed. Some of the risks and complications were included in a form from the [employer] [employer]. We discussed the current risks associated with COVID-19. While it is understood that there is a community spread of COVID-19, the risk of sherrell COVID-19 while at [facility] ([facility]) is very low; however, the risk cannot be completely mitigated because of the community spread of the disease. We discussed in detail the risk of exposure to and/or potential harm posed by the COVID-19 virus with having a surgery/procedure at this time versus the risk of delaying the surgery/procedure. It is not possible to know either the risk of delaying the surgery or procedure or chance of getting an infection with perfect accuracy, but a joint decision was made to proceed at this time with the scheduled surgery/procedure as indicated on the consent form. Patient was notified that we will need to comply with any screening or testing [facility] wishes to perform or that surgery may be delayed for any positive results. Procedure Criteria Procedure Type: Elective COVID Risk Discussion: The surgeon/proceduralist and patient have discussed in detail the risk of exposure to and/or potential harm posed by the COVID-19 virus with having a s urgery/procedure at this time versus the risk of delaying the surgery/procedure. It is not possible to know either the risk of delaying the surgery or procedure or chance of getting an infection with perfect accuracy, but a joint decision was made between the patient and the surgeon/proceduralist to proceed at this time with the scheduled surgery/procedure as indicated on the consent form.
--- NOTE | 2021-08-04 | LES_PTH ---
PATIENT: MAYA MALLOY [place] [facility] [place][id number] AGE/SX: 46/F ROOM: RE08/04/[address]: Dr. Nehemiah Denney MD : 1975 BED: DIS: 08/04/2021 SPEC #: [id number] RECD: 08/04/21 10:51 STATUS: STACI RESulema #: [id number] FRANCHESKA: 08/04/21 00:[address]: Nehemiah Denney DEPT: SURGICAL PATHOLOGY RECD BY: Aditya Stack ENTERED: 08/04/21 10:51 SP TYPE: Lesion OTHR DR: Martha Haro, ESTHETICIAN/SPA COORDINATOR-C Tissues: Skin of face, NOS Procedures: Surgery Specimen Level IV HEADER OPERATION: Surgical preparation medial cheek by oral commissure PRE-OP DIAGNOSIS: Dog bite wound infection abscess right medial cheek by oral commissure, healed with some pin-cushioning scar contour deformity TISSUE SUBMITTED: Wound infection abscess right medial cheek by oral commissure MICROSCOPIC DIAGNOSIS Skin and soft tissue of right medial cheek, excision: Fibrosis and mild chronic inflammation. AM:emily 08/05/2021 MICROSCOPIC DESCRIPTION Slides are reviewed. GROSS DESCRIPTION Received in fixative is one container labeled with the patient's name and designated wound infection abscess right medial cheek by oral commissure. The specimen consists of a piece of soft tissue measuring 2 x 0.7 x 0.2 cm. A piece of skin is noted at one edge measuring 1.5 x 0.1 cm. The specimen is bisected and submitted entirely in one cassette. / VIKY:emily 08/04/21 TC:3 CPT: 39391
[2021-08-04 07:41] VITALS: BP 110/71; PULSE 64; RESP 16; TEMP 36.3; O2SAT 100; BMI 35.2
[2021-08-04] MEDS: Lactated Ringers 1,000 ML 15 ML IV (08:10)
[2021-08-04] MEDS: Mupirocin Ointment 22gm Tube 1 APPLIC (09:50)
[2021-08-04] MEDS: Lidocaine 1% /Epi 1:100 (20ml) 20 ML Vial (10:05)
--- NOTE | 2021-08-04 10:13 | PCM.OPRPT ---
Problems Associated Problem List Diagnoses (1) Open bite of other part of head, sequela: (2) Bitten by dog, sequela: (3) History of abscess of skin and subcutaneous tissue: (4) History of Crohn's disease: (5) Long-term current use of ustekinumab: (6) senior living current use of systemic steroids: Report of Operation Date of Procedure: 08/04/21 Pre-Operative Diagnosis: 1. Late effect dog bite wound infection abscess right medial cheek by oral commissure with pincushioning indentation scar contour deformity. 2. History of Crohn's disease. 3. Long-term use of ustekinumab. 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 Post-Operative Diagnosis: Same. Surgery/Procedure Performed:: Surgical preparation right medial cheek by oral commissure with excisional debridement dog bite wound infection abscess pincushioning indentation scar contour deformity and multiple W-plasty reconstruction (4 cm2). Description of Surgical Findings:: The patient is a 46 year old F with past medical history of Crohn's disease and on Stelara (Ustekinumab) and Prednisone sustained complex dog bite wounds to the right side of her face (right preauricular area by helical root, right cheek near lower eyelid, and right medial cheek by oral commissure) om 08/23/20. It was a family dog. She went to the ED where the dog bite wounds were cleansed and suture repaired with single layer of Nylon sutures. She was discharged on Augmentin. Over the next couple of days she developed worsening pain and redness and swelling around the dog bite incisions which prompted a return visit to the ED on 08/25/20. She was admitted to the hospital and was started on Ceftriaxone and Flagyl. CT Face was done which showed cellulitis in the right side of the face but no abscess. She underwent surgery on 08/27/20 where she underwent surgical preparation right face with incision and drainage and excisional debridement multiple dog bites wound infection abscesses (right preauricular area by helical root, right cheek by lower eyelid, and right medial cheek by oral commissure). At the present time her wounds are healed. She completed laser treatments to improve the painful symptomatology, which helped with the burning pain on the right cheek by lower eyelid scar. The redness and some of the scar thickening have also improved after the laser treatments. Patient was informed of the risks and complications of the procedure including alternatives to surgery. These were discussed with the patient personally. Patient voices understanding and wishes to proceed. Some of the risks and complications were included in a form from the [place] [employer] [employer]. Surgeon: Nehemiah Denney measurement and sensing technician: None Type of Anesthesia: General Specimen's removed: Dog bite wound infection abscess pincushioning indentation scar contour deformity right medial cheek by oral commissure to Pathology and Microbiology. Drains: None. Estimated Blood Loss (mL): 10. Description of Procedure: Patient was taken to OR in supine position and was placed under general anesthesia. The face was prepped and draped in the usual fashion. SCD's were placed for DVT prophylaxis. Perioperative antibiotics were given intravenously. Using xylocaine with epinephrine, the scar right medial cheek by the oral commissure was infiltrated. After waiting 5 minutes for the anesthetic to take effect, I proceeded with the excision under loupe magnification. I designed W-plasty flaps around the pincushioned scar deformity. Incisions were made through the scar into the subcutaneous tissue down to the muscle. The scar had adhered to the underlying muscle. After freeing the scar from the underlying muscle, the wound felt soft enough that I can continue with the reconstruction. If there is still some areas of dense scarring, sometimes suboptimal healing occurs. So when I re-create the defect, it is best to remove not only the scar on the skin but also the underlying scar tissue that can be minimal or quite extensive. When the tissue was excised, it was sent to Pathology for analysis to rule out carcinoma. A small sample of tissue was also sent to Microbiology for culture. A positive culture will necessitate antibiotic therapy. The multiple W flaps were inset using 5-0 Monocryl interrupted sutures for the deep dermis and subcutaneous tissue. The skin was approximated with 6-0 Prolene simple interrupted sutures. Good shape and contour of the right medial cheek by oral commissure was noted. Steri-strips were applied followed by antibiotic ointment. Patient tolerated the procedure well and was sent to PACU in satisfactory condition. Patient will be sent home on antibiotics and pain medication. She will keep her head elevated during the initial Patient will followup in a week for a wound check and for discussion of the pathology report and the microbiology report. A positive culture will necessitate antibiotic therapy. The sutures will be removed at that time as well. Grafts/Implants Used: None. Complications None. Admit VTE Documentation VTE Present on Admission: No VTE Mechan Device Prophylaxis: SCD's VTE Pharm Prophylaxis ordered?: No Addendum Addendum: Surgery Charges CPT - 64370 ICD-10 - S01.85xS, W54.0xxS, Z87.2, Z87.19, Z79.899, Z79.52 91801 S01.85xS, W54.0xxS, Z87.2, Z87.19, Z79.899, Z79.52
[2021-08-04 10:18] VITALS: BP 119/83; PULSE 80; RESP 16; TEMP 36.3; O2SAT 95
--- NOTE | 2021-08-04 10:21 | PCM.DC ---
Discharge Instructions Diet Discharge Diet: No restrictions Activity Discharge Activity: May Not Drive (if taking narcotics for pain.), May Shower (in two days.) and - (keep head elevated. No heavy lifting.) May shower in (days): 2 May resume sexual activity in: No Restrictions Ice area for (Minutes): 5 (as needed for facial swelling.) Weight Bearing Status: Weight bearing as tolerated Lifting Restrictions: 20 lbs. Keep extremity elevated above heart level: - (elevate head.) Dressing / Incision Call your doctor if your incision/area has: Continuous Slow Oozing, Sudden Increased Bleeding, Increased Pain/ Swelling, Increased Redness, Foul Smelling Discharge and Swelling at the incision site Call your doctor if you observe: Fever of 101 or Higher, Coldness, Increased Pain, Shortness of breath, Chest pain, Calf discomfort and Uncontrolled pain Suture Line Care: - (apply antibiotic ointment to suture line daily. If steri-strips become loose, you may remove the loose strips.) Change Dressing in: leave in place till F/U (leave steri-strips alone unless it becomes loose then you may remove the loose strip. The rest of the strips will be removed in the office.) Cleanse incision/area with: Soap & Water (when in the shower in two days, may use soap and water on the incision.) and - (may get incision wet in the shower in two days.) Follow Up Care Please Follow Up With: Nehemiah Denney MD When: one week. call [phone] for appt. Test Results: Test results from this visit will be discussed in further detail at your follow-up appointment, if applicable. Discharge Plan Admission Primary Reason for Your Visit: dog bite indentation scar contour deformity right cheek Attending Provider: Nehemiah Denney Primary Care Provider: Martha Haro NP Discharge Orders/Prescriptions Prescriptions: New clindamycin HCl [Cleocin HCl] 300 mg capsule 300 mg PO TID Qty: 15 RF: 0 oxycodone-acetaminophen [Percocet] 5-325 mg tablet 1 tab PO Q6H PRN (Reason: pain (scale score 7-10)) 7 Days Qty: 28 RF: 0 diazepam [Valium] 5 mg tablet 5 mg PO BID PRN (Reason: spasms) Qty: 10 RF: 0 Continued Anti-Diarrheal 4 TAB 4 tab PO DAILY RF: 0 omeprazole 40 MG capsule 40 mg PO DAILY RF: 0 baclofen 10 MG tablet 10 mg PO TID PRN (Reason: Pain 1-10 Or Fever) RF: 0 gabapentin 300 MG capsule 300 mg PO TID RF: 0 fluticasone propionate 1 SPRAY spray,suspension 2 spray NASAL DAILY PRN PRN (Reason: Congestion) RF: 0 trazodone 50 MG tablet 50 mg PO QHS PRN (Reason: Insomnia) RF: 0 metoclopramide HCl 10 MG tablet 5 mg PO TID PRN PRN (Reason: Nausea) RF: 0 trazodone 50 mg tablet See Rx Instructions PO QHS PRN (Reason: Sleep) RF: 0 Held oxycodone-acetaminophen 1 EACH tablet 1 tab PO TID PRN (Reason: Pain Score 1-10) RF: 0 Hold Instructions: Resume on 08/11/21. will provide a script for Percocet from the surgery. do not take both scripts at the same time. Referrals / Follow Up: Martha Haro [employer]TER OFF, W[employer] OFF-C [Primary Care Provider] - Disposition Disposition (needs filled in before D/C Order can be placed): Home, Self Care
[2021-08-04 10:36] VITALS: BP 120/84; PULSE 72; RESP 16; O2SAT 98
[2021-08-04 10:50] VITALS: BP 121/82; PULSE 70; RESP 16; O2SAT 99
[2021-08-04 10:55] VITALS: BP 121/82; PULSE 71; RESP 16; TEMP 36.1; O2SAT 98
[2021-08-04 12:11] VITALS: BP 127/81; PULSE 75; RESP 16; TEMP 36.3; O2SAT 100
== END 2021-08-04 12:14 ==
LOC: SDC 07:04 → AC 07:05
PROVIDERS: Anesthesiology; PCP Nurse Practitioner Family; Referring Provider Surgery; Visit Provider Surgery
PROC: (CPT 14040; principal; 2021-08-04 08:20)
DX: S01.85XS Open bite of other part of head, sequela (principal); L02.01 Cutaneous abscess of face; L90.5 Scar conditions and fibrosis of skin; W54.0XXS Bitten by dog, sequela; M79.7 Fibromyalgia; K50.90 Crohn's disease, unspecified, without complications; G43.909 Migraine, unspecified, not intractable, without status migrainosus; M19.90 Unspecified osteoarthritis, unspecified site; K21.9 Gastro-esophageal reflux disease without esophagitis; Z86.16 Personal history of COVID-19; Z87.19 Personal history of other diseases of the digestive system; Z79.52 Long term (current) use of systemic steroids; Z79.899 Other long term (current) drug therapy
CPT/HCPCS: 00300; 14040; 15004; 36415; 80076; 85027; 85610; 85730; 87070; 87075; 87077; 87186; 87205; 88305; J7120